=== PATIENT | female | born 2000 | race Caucasian/White ===

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

== ENCOUNTER 2022-01-29 04:59 | Emergency (ER) | payer SELFPAY ==
[2022-01-29 05:05] VITALS: BP 138/88; PULSE 77; RESP 15; TEMP 36.4; O2SAT 100; BMI 29.7
--- NOTE | 2022-01-29 05:26 | ED.GENADULT ---
HPI - General Adult <Anju Watt MD - Last Filed: 02/10/22 18:30> General Chief complaint: Abdominal Pain Stated complaint: ABD. PAIN/VOMITING Time Seen by Provider: 01/29/22 05:17 Source: patient Mode of arrival: Ambulatory History of Present Illness HPI narrative: Otherwise healthy 21-year-old young woman on Depo-Provera for control presents with acute onset right lower quadrant abdominal pain. It awoke her from sleep with severe nausea at 3:30 a.m. this morning she is had a number of episodes of vomiting, right lower quadrant pain, mild right flank pain. No vaginal discharge but she notes that her urine is quite concentrated. She hits general abdominal cramping and did not feel perfect yesterday but still was able to go to work. She describes no fevers, cough, palpitations, headache. She is had no dysuria and no vaginal discharge. She is had no rashes and no lower extremity edema Related Data Previous Rx's Medication Instructions Recorded meloxicam 7.5 mg tablet 7.5 mg PO BID PRN pain #20 tabs 01/29/22 oxycodone 5 mg tablet 5 mg PO Q6H PRN pain #14 tabs 01/29/22 tamsulosin 0.4 mg capsule (Flomax) 0.4 mg PO DAILY #7 caps 01/29/22 Allergies Allergy/AdvReac Type Severity Reaction Status Date / Time No Known Drug Allergies Allergy Verified 01/29/22 05:10 Review of Systems <Anju Watt MD - Last Filed: 02/10/22 18:30> Review of Systems Narrative: Remainder of complete review of systems is otherwise unremarkable except for that included in the HPI. Patient History <Anju Watt MD - Last Filed: 02/10/22 18:30> Medical History Dysmenorrhea Menorrhagia No significant medical problems Reactive airway disease Social History Smoking Status: Never smoker Smoking Status: Never smoker alcohol intake frequency: holidays/special occasions only Substance Use Type: does not use Exam <Anju Watt MD - Last Filed: 02/10/22 18:30> Initial Vital Signs Initial Vital Signs: Vital Signs Temperature 97.6 F 01/29/22 05:05 Pulse Rate 77 01/29/22 05:05 Respiratory Rate 15 01/29/22 05:05 Blood Pressure 138/88 01/29/22 05:05 Pulse Oximetry 100 01/29/22 05:05 Oxygen Delivery Method 01/29/22 05:05 General: Healthy appearing, in mild distress. Able to give a complete and coherent history. Well-nourished well-developed HEENT: Moist mucous membranes, normal sclera with reactive pupils, Neck: No cervical adenopathy supple Respiratory: Lungs are clear to auscultation, no wheezing no rales no rhonchi. Full and symmetrical air movement Cardiac: Regular rate and rhythm no murmurs no bruits Abdomen: Soft, mild tenderness in the right lower quadrant in the right flank without rebound or guarding., good bowel tones, no flank pain Skin: Warm and dry, no rashes Neurologic: Grossly neurologically intact with no obvious asymmetries or abnormalities Extremities: No trauma, well perfused Psych: Cooperative, appropriate insight and affect <Michelle Francisco DO - Last Filed: 01/29/22 18:41> Initial Vital Signs Initial Vital Signs: Vital Signs Temperature 97.6 F 01/29/22 05:05 Pulse Rate 77 01/29/22 05:05 Respiratory Rate 15 01/29/22 05:05 Blood Pressure 138/88 01/29/22 05:05 Pulse Oximetry 100 01/29/22 05:05 Oxygen Delivery Method 01/29/22 05:05 Course <Anju Watt MD - Last Filed: 02/10/22 18:30> Orders Ordered: Discontinued Medications Hydromorphone HCl (Hydromorphone 0.5 Mg Inj) 0.5 mg IV Q15MIN PRN PRN Reason: Pain, Last Admin: 01/29/22 05:44 Dose: 0.5 mg Documented By: URSULA Sodium Chloride (Normal Saline 0.9%) 1,000 mls @ 1,000 mls/hr IV BOLUS ONE Stop: 01/29/22 06:30 Last Infusion: 01/29/22 08:07 Dose: 0 mls/hr Documented By: Admin: 01/29/22 05:44 Dose: 1,000 mls/hr Documented By: URSULA Ceftriaxone Sodium 2,000 mg/ (Sodium Chloride) 100 mls @ 200 mls/hr IV NOW ONE Stop: 01/29/22 07:53 Last Infusion: 01/29/22 09:31 Dose: 0 mls/hr Documented By: Admin: 01/29/22 08:22 Dose: 200 mls/hr Documented By: PHOENIX Ketorolac Tromethamine (Ketorolac 30 Mg/Ml Vial) 15 mg IV NOW ONE Stop: 01/29/22 08:10 Last Admin: 01/29/22 08:18 Dose: 15 mg Documented By: PHOENIX Ondansetron HCl (Ondansetron 4 Mg/2 Ml Inj) 4 mg IV NOW ONE Stop: 01/29/22 05:13 Last Admin: 01/29/22 05:44 Dose: 4 mg Documented By: URSULA Ondansetron HCl (Ondansetron 4 Mg/2 Ml Inj) 4 mg IV NOW ONE Stop: 01/29/22 05:32 Last Admin: 01/29/22 08:06 Dose: Not Given Documented By: PHOENIX Vital Signs Vital signs: Vital Signs - 8 hr 01/29/22 05:05 01/29/22 09:29 Temperature 97.6 F Pulse Rate 77 84 Respiratory Rate 15 18 Blood Pressure 138/88 111/72 Pulse Oximetry 100 96 Oxygen Delivery Method Room Air Room Air <Michelle Francisco DO - Last Filed: 01/29/22 18:41> Orders Ordered: Discontinued Medications Hydromorphone HCl (Hydromorphone 0.5 Mg Inj) 0.5 mg IV Q15MIN PRN PRN Reason: Pain, Last Admin: 01/29/22 05:44 Dose: 0.5 mg Documented By: URSULA Sodium Chloride (Normal Saline 0.9%) 1,000 mls @ 1,000 mls/hr IV BOLUS ONE Stop: 01/29/22 06:30 Last Infusion: 01/29/22 08:07 Dose: 0 mls/hr Documented By: Admin: 01/29/22 05:44 Dose: 1,000 mls/hr Documented By: URSULA Ceftriaxone Sodium 2,000 mg/ (Sodium Chloride) 100 mls @ 200 mls/hr IV NOW ONE Stop: 01/29/22 07:53 Last Infusion: 01/29/22 09:31 Dose: 0 mls/hr Documented By: Admin: 01/29/22 08:22 Dose: 200 mls/hr Documented By: PHOENIX Ketorolac Tromethamine (Ketorolac 30 Mg/Ml Vial) 15 mg IV NOW ONE Stop: 01/29/22 08:10 Last Admin: 01/29/22 08:18 Dose: 15 mg Documented By: PHOENIX Ondansetron HCl (Ondansetron 4 Mg/2 Ml Inj) 4 mg IV NOW ONE Stop: 01/29/22 05:13 Last Admin: 01/29/22 05:44 Dose: 4 mg Documented By: URSULA Ondansetron HCl (Ondansetron 4 Mg/2 Ml Inj) 4 mg IV NOW ONE Stop: 01/29/22 05:32 Last Admin: 01/29/22 08:06 Dose: Not Given Documented By: PHOENIX Consultations Consultation #1: Dr. Han, urology paged [phone]. Discussed patient's findings, white count of 12, normal renal function moderate hydro with a 4 mm stone, nitrates, white cells with 1-5 squamous epithelials, afebrile without any signs of sepsis. Plan for Levaquin, pain management Flomax patient is to reach out on Monday. With strict return precautions he feels comfortable with this plan agrees with current medications. Time: 09:39 Vital Signs Vital signs: Vital Signs - 8 hr 01/29/22 05:05 01/29/22 09:29 Temperature 97.6 F Pulse Rate 77 84 Respiratory Rate 15 18 Blood Pressure 138/88 111/72 Pulse Oximetry 100 96 Oxygen Delivery Method Room Air Room Air Medical Decision Making <Anju Watt MD - Last Filed: 02/10/22 18:30> Lab Data Result diagrams: 01/29/22 05:20 01/29/22 05:20 Labs: Lab Results 01/29/22 01/29/22 01/29/22 Range/Units 05:20 05:20 05:22 WBC 12.6 H (4.5-11.0) X10^3/uL RBC 5.16 (4.0-5.2) X10^6/uL Hgb 14.2 (12.0-16.0) g/dL Hct 42.5 (36-46) % MCV 82.5 (80-100) fL MCH 27.6 (26-34) PG MCHC 33.5 (30-36) % RDW 13.3 (11.6-14.8) % Plt Count 283 (150-400) X10^3/uL Neut % (Auto) 74.9 (50-75) % Lymph % (Auto) 19.5 L (25-40) % [place] % (Auto) 4.3 (3-14) % Eos % (Auto) 1.0 L (2-4) % Baso % (Auto) 0.3 (0-2) % Neut # (Auto) 9400 H (2686-0113) /uL Lymph # (Auto) 2500 (7017-1236) /uL [place] # (Auto) 500 (0-900) /uL Eos # (Auto) 100 (0-450) /uL Baso # (Auto) 0 (0-100) /uL Sodium 142 (137-145) mmol/L Potassium 3.7 (3.4-5.1) mmol/L Chloride 104 (98-107) mmol/L Carbon Dioxide 22 (22-32) mmol/L BUN 14 (7-17) mg/dL Creatinine 0.89 (0.52-1.04) mg/dL Estimated GFR > 60 (>60) mL/min BUN/Creatinine Ratio 15.7 (6-22) Glucose 123 H (70-100) mg/dL Calcium 10.3 H (8.4-10.2) mg/dL Total Bilirubin 0.4 (0.2-1.3) mg/dL AST 23 (14-36) IU/L ALT 23 (<35) IU/L Alkaline Phosphatase 82 (38-126) U/L Total Protein 8.8 H (6.3-8.2) g/dL Albumin 4.7 (3.5-5.0) g/dL Globulin 4.1 (1.7-4.1) g/dL Albumin/Globulin Ratio 1.1 (1.0-2.8) Lipase 42 (23-300) U/L Ur Bilirubin Confirm Negative (Negative) Urine RBC (0-5/HPF) Urine WBC (0-5/HPF) Ur Squamous Epith Cells (0-5/HPF) Calcium Oxalate Crystal Amorphous Sediment Urine Bacteria (None) 01/29/22 Range/Units 05:22 WBC (4.5-11.0) X10^3/uL RBC (4.0-5.2) X10^6/uL Hgb (12.0-16.0) g/dL Hct (36-46) % MCV (80-100) fL MCH (26-34) PG MCHC (30-36) % RDW (11.6-14.8) % Plt Count (150-400) X10^3/uL Neut % (Auto) (50-75) % Lymph % (Auto) (25-40) % [place] % (Auto) (3-14) % Eos % (Auto) (2-4) % Baso % (Auto) (0-2) % Neut # (Auto) (1651-5042) /uL Lymph # (Auto) (9052-1798) /uL [place] # (Auto) (0-900) /uL Eos # (Auto) (0-450) /uL Baso # (Auto) (0-100) /uL Sodium (137-145) mmol/L Potassium (3.4-5.1) mmol/L Chloride (98-107) mmol/L Carbon Dioxide (22-32) mmol/L BUN (7-17) mg/dL Creatinine (0.52-1.04) mg/dL Estimated GFR (>60) mL/min BUN/Creatinine Ratio (6-22) Glucose (70-100) mg/dL Calcium (8.4-10.2) mg/dL Total Bilirubin (0.2-1.3) mg/dL AST (14-36) IU/L ALT (<35) IU/L Alkaline Phosphatase (38-126) U/L Total Protein (6.3-8.2) g/dL Albumin (3.5-5.0) g/dL Globulin (1.7-4.1) g/dL Albumin/Globulin Ratio (1.0-2.8) Lipase (23-300) U/L Ur Bilirubin Confirm (Negative) Urine RBC 30-100/hpf H (0-5/HPF) Urine WBC 1-5/hpf (0-5/HPF) Ur Squamous Epith Cells 1-5 /hpf (0-5/HPF) Calcium Oxalate Crystal Occasional H Amorphous Sediment 1+ Urine Bacteria Many (>30) H (None) Point of Care Testing Test Results Negative Urine Dip Bedside Urine Glucose Negative Bedside Urine Bilirubin + 1 Bedside Urine Ketone +/- 5 Urine Specific [place] 1.030 Bedside Urine Occult Blood +++ Bedside Urine pH 5.0 Bedside Urine Protein +++ 300 Bedside Urine Urobilinogen +/- 1mg Bedside Urine Nitrite + Positive Point of care testing: Point of Care Testing Test Results Negative Urine Dip Bedside Urine Glucose Negative Bedside Urine Bilirubin + 1 Bedside Urine Ketone +/- 5 Urine Specific [place] 1.030 Bedside Urine Occult Blood +++ Bedside Urine pH 5.0 Bedside Urine Protein +++ 300 Bedside Urine Urobilinogen +/- 1mg Bedside Urine Nitrite + Positive <Michelle Francisco, DO - Last Filed: 01/29/22 18:41> Lab Data Labs: Lab Results 01/29/22 01/29/22 01/29/22 Range/Units 05:20 05:20 05:22 WBC 12.6 H (4.5-11.0) X10^3/uL RBC 5.16 (4.0-5.2) X10^6/uL Hgb 14.2 (12.0-16.0) g/dL Hct 42.5 (36-46) % MCV 82.5 (80-100) fL MCH 27.6 (26-34) PG MCHC 33.5 (30-36) % RDW 13.3 (11.6-14.8) % Plt Count 283 (150-400) X10^3/uL Neut % (Auto) 74.9 (50-75) % Lymph % (Auto) 19.5 L (25-40) % [place] % (Auto) 4.3 (3-14) % Eos % (Auto) 1.0 L (2-4) % Baso % (Auto) 0.3 (0-2) % Neut # (Auto) 9400 H (4940-0636) /uL Lymph # (Auto) 2500 (3215-1872) /uL [place] # (Auto) 500 (0-900) /uL Eos # (Auto) 100 (0-450) /uL Baso # (Auto) 0 (0-100) /uL Sodium 142 (137-145) mmol/L Potassium 3.7 (3.4-5.1) mmol/L Chloride 104 (98-107) mmol/L Carbon Dioxide 22 (22-32) mmol/L BUN 14 (7-17) mg/dL Creatinine 0.89 (0.52-1.04) mg/dL Estimated GFR > 60 (>60) mL/min BUN/Creatinine Ratio 15.7 (6-22) Glucose 123 H (70-100) mg/dL Calcium 10.3 H (8.4-10.2) mg/dL Total Bilirubin 0.4 (0.2-1.3) mg/dL AST 23 (14-36) IU/L ALT 23 (<35) IU/L Alkaline Phosphatase 82 (38-126) U/L Total Protein 8.8 H (6.3-8.2) g/dL Albumin 4.7 (3.5-5.0) g/dL Globulin 4.1 (1.7-4.1) g/dL Albumin/Globulin Ratio 1.1 (1.0-2.8) Lipase 42 (23-300) U/L Ur Bilirubin Confirm Negative (Negative) Urine RBC (0-5/HPF) Urine WBC (0-5/HPF) Ur Squamous Epith Cells (0-5/HPF) Calcium Oxalate Crystal Amorphous Sediment Urine Bacteria (None) 01/29/22 Range/Units 05:22 WBC (4.5-11.0) X10^3/uL RBC (4.0-5.2) X10^6/uL Hgb (12.0-16.0) g/dL Hct (36-46) % MCV (80-100) fL MCH (26-34) PG MCHC (30-36) % RDW (11.6-14.8) % Plt Count (150-400) X10^3/uL Neut % (Auto) (50-75) % Lymph % (Auto) (25-40) % [place] % (Auto) (3-14) % Eos % (Auto) (2-4) % Baso % (Auto) (0-2) % Neut # (Auto) (2127-9654) /uL Lymph # (Auto) (8960-5089) /uL [place] # (Auto) (0-900) /uL Eos # (Auto) (0-450) /uL Baso # (Auto) (0-100) /uL Sodium (137-145) mmol/L Potassium (3.4-5.1) mmol/L Chloride (98-107) mmol/L Carbon Dioxide (22-32) mmol/L BUN (7-17) mg/dL Creatinine (0.52-1.04) mg/dL Estimated GFR (>60) mL/min BUN/Creatinine Ratio (6-22) Glucose (70-100) mg/dL Calcium (8.4-10.2) mg/dL Total Bilirubin (0.2-1.3) mg/dL AST (14-36) IU/L ALT (<35) IU/L Alkaline Phosphatase (38-126) U/L Total Protein (6.3-8.2) g/dL Albumin (3.5-5.0) g/dL Globulin (1.7-4.1) g/dL Albumin/Globulin Ratio (1.0-2.8) Lipase (23-300) U/L Ur Bilirubin Confirm (Negative) Urine RBC 30-100/hpf H (0-5/HPF) Urine WBC 1-5/hpf (0-5/HPF) Ur Squamous Epith Cells 1-5 /hpf (0-5/HPF) Calcium Oxalate Crystal Occasional H Amorphous Sediment 1+ Urine Bacteria Many (>30) H (None) Point of Care Testing Test Results Negative Urine Dip Bedside Urine Glucose Negative Bedside Urine Bilirubin + 1 Bedside Urine Ketone +/- 5 Urine Specific [place] 1.030 Bedside Urine Occult Blood +++ Bedside Urine pH 5.0 Bedside Urine Protein +++ 300 Bedside Urine Urobilinogen +/- 1mg Bedside Urine Nitrite + Positive Point of care testing: Point of Care Testing Test Results Negative Urine Dip Bedside Urine Glucose Negative Bedside Urine Bilirubin + 1 Bedside Urine Ketone +/- 5 Urine Specific [place] 1.030 Bedside Urine Occult Blood +++ Bedside Urine pH 5.0 Bedside Urine Protein +++ 300 Bedside Urine Urobilinogen +/- 1mg Bedside Urine Nitrite + Positive Imaging Data CT scan - abdomen/pelvis: Radiologist's Impression: Charlene Calixto??21??F??2000 ? Allergy/Adv: No Known Drug Allergies Close Abdomen/Pelvis CT (Signed) Kash Haji - 01/29/22 Abdomen Ultrasound (Signed) Kash Haji - 01/29/22 DI Result CC 11/11/20 Wrist X-Ray (Signed) Luisito Moses - 04/03/20 Hand X-Ray (Signed) Call,Thanh - 03/11/19 Pelvis Ultrasound (Signed) Call,Thanh - 12/20/18 Forearm X-Ray (Signed) SungLarry davisdevon - 12/24/17 Wrist X-Ray (Addendum) Larry Sungdevon - 12/24/17 Ankle X-Ray (Signed) Adán Braun - 10/06/17 Ankle X-Ray (Signed) Marija Malik - 08/25/17 [place] [address] CT Scan Report Signed Patient: Charlene Calixto MR#: [id number] : 2000 Acct:[id number] Age/Sex: 21 / F Date of Service: 01/29/22 Loc: ED Accession Number: [id number] ?? Procedure: CT abdomen pelvis w con Ordering Provider: Michelle Francisco D.O. PROCEDURE:? CT ABDOMEN PELVIS W CON ? INDICATIONS:? RLQ pain, appy? ? TECHNIQUE:? After the administration of intravenous contrast, axial sections acquired from the lung bases to the pubic symphysis.? Coronal and sagittal reformats were performed.? For radiation dose reduction, the following was used:? automated exposure control, adjustment of mA and/or kV according to patient size.? ? COMPARISON:? None. ? FINDINGS: ? Lower thorax: The lung bases are clear.? Heart size normal.? No hiatal hernia. ? Liver:? Normal in size and attenuation. No contour deformity present. ? Biliary system:? No calcified cholelithiasis or pericholecystic inflammation.? No intra or extrahepatic bile duct dilatation. ? Pancreas:? Unremarkable without mass or inflammation evident. ? Spleen:? Normal in size and density. ? Adrenals:? Normal morphology and density. ? Reproductive system:? Incidental prominent septate uterus ? Urinary system:? 4 mm calculus in the proximal right ureter results in moderate right hydronephrosis and hydroureter.? Slightly delayed enhancement noted in the right kidney.? There is a 8 mm simple cyst in the left upper pole renal cortex.? No left hydronephrosis. ? Gastrointestinal system:? The bowel is unremarkable without evidence of bowel obstruction or inflammation. The stomach appears unremarkable. ? Appendix:? Normal appendix identified.? No evidence of appendicitis. ? Peritoneal spaces:? No mesenteric or retroperitoneal adenopathy.? No free air.? No free fluid.? ? Vasculature:? The IVC, aorta and iliac vasculature are unremarkable. ? Abdominal wall:? Abdominal wall intact without evidence of ventral or inguinal hernias. ? Musculoskeletal:? Normal bone mineralization.? No acute fractures.? ? IMPRESSION: ? 1. Small 4 mm calculus in proximal right ureter results in moderate hydronephrosis ? 2. Incidental septate uterus ? ? ? Approved by: Kash Haji M.D. on 01/29/2022 at 7:26? MDM Narrative Medical decision making narrative: 01/29/22 Mank: This is a 21-year-old female signed out to myself with acute onset of severe right lower abdominal pain with vomiting. Patient has a white count 12, normal renal function, electrolytes and LFTs. Point of care urine shows nitrates, blood and oxalate crystals, patient has a negative test. Abdominal ultrasound was ordered by the night provider does not clearly show appendix and CT abdomen pelvis was obtained to evaluate for appendicitis versus kidney stone versus pyelonephritis and patient appears to have right 4 mm kidney stone. Patient does have nitrite positive urine does not appear septic, she has given a dose of IV antibiotic, pain medications and fluids on evaluation patient is feeling much improved. She does not show any signs of sepsis currently. Plan for Flomax, antibiotics, pain management, strict return precautions we did discuss that she is risk become obstructive and developed sepsis. Urology was consulted spoke with Dr. Han agree with plan for strict return precautions and above. Discharge Plan Departure Patient Disposition: Home Clinical Impression: Kidney stone on right side, UTI (urinary tract infection) Activity Restrictions/Additional Instructions: Please follow-up with urology if your symptoms are persisting but controlled at home. You have a kidney stone on the right side as well as an infection in your bladder. This can sometimes cause obstruction and make people very sick if you are worsening please return to the ER Take Flomax once daily until gone. Take antibiotics until completed. You may take meloxicam 1 tablet every 12 hours as needed for pain. Tylenol up to a 1000 mg every 6 hours as needed for pain. If inadequate for pain control you may take 1-2 tablets of oxycodone. This medication can make you sleepy do not drive, perform hazardous activities or make any major decisions while taking it. This medication will make you constipated please take a stool softener once to twice daily until stools are soft and regular. Prescription sent to [facility] in [place] Please return for fevers, rapidly worsening pain that is not controlled at home such abdominal, back or flank pain, persistent vomiting, inability urinate, black or bloody stools or other new or concerning changes. Prescriptions: New tamsulosin [Flomax] 0.4 mg capsule 0.4 mg PO DAILY Qty: 7 0RF meloxicam 7.5 mg tablet 7.5 mg PO BID PRN (Reason: pain) Qty: 20 0RF oxycodone 5 mg tablet 5 mg PO Q6H PRN (Reason: pain) Qty: 14 0RF Referrals: Vicenta Beverly MD [Primary Care Provider] - Michael Han MD [Physician] - Visit Report Forms: Patient Portal/API
[2022-01-29 05:34] LABS: Add Manual Diff / Slide Review NO; Basophils Absolute Auto 0 /uL (0-100); Basophils Percent Auto 0.3 % (0-2); Eosinophils Absolute Auto 100 /uL (0-450); Hematocrit 42.5 % (36-46); Hemoglobin 14.2 g/dL (12.0-16.0); Lymphocytes Absolute Auto 2500 /uL (1100-4500); Lymphocytes Percent Auto 19.5 % (25-40); Mean Corpuscular HGB Conc 33.5 % (30-36); Mean Corpuscular Hemoglobin 27.6 PG (26-34); Mean Corpuscular Volume 82.5 fL (80-100); Monocytes Absolute Auto 500 /uL (0-900); Monocytes Percent Auto 4.3 % (3-14); Neutrophils Absolute Auto 9400 /uL (1500-7000); Neutrophils Percent Auto 74.9 % (50-75); Platelet Count 283 X10^3/uL (150-400); Red Blood Cell Count 5.16 X10^6/uL (4.0-5.2); Red Cell Distribution Width 13.3 % (11.6-14.8); White Blood Cell Count 12.6 X10^3/uL (4.5-11.0)
[2022-01-29 05:40] LABS: Alanine Aminotransferase 23 IU/L (<35); Albumin 4.7 g/dL (3.5-5.0); Albumin Globulin Ratio 1.1 (1.0-2.8); Alkaline Phosphatase 82 U/L (38-126); Aspartate Aminotransferase 23 IU/L (14-36); BUN Creatinine Ratio 15.7 (6-22); Bilirubin Total 0.4 mg/dL (0.2-1.3); Blood Urea Nitrogen 14 mg/dL (7-17); Calcium 10.3 mg/dL (8.4-10.2); Carbon Dioxide 22 mmol/L (22-32); Chloride 104 mmol/L (98-107); Estimated Glomerular Filt Rate > 60 mL/min (>60); Globulin 4.1 g/dL (1.7-4.1); Glucose 123 mg/dL (70-100); HEMOLYSIS < 15 (0-50); Lipase 42 U/L (23-300); Potassium 3.7 mmol/L (3.4-5.1); Sodium 142 mmol/L (137-145); Total Protein 8.8 g/dL (6.3-8.2)
[2022-01-29] MEDS: SODIUM CHLORIDE 0.9% 1,000 ML 1000 ML IV (05:44)
[2022-01-29] MEDS: ONDANSETRON 4 MG/2 ML INJ IV (05:44)
[2022-01-29] MEDS: HYDROMORPHONE 0.5 MG INJ IV (05:44)
--- NOTE | 2022-01-29 06:18 | DI.US.S_ITS ---
PROCEDURE: US ABDOMEN LIMITED INDICATIONS: RLQ PAIN TECHNIQUE: Real-time scanning was performed of the abdominal and retroperitoneal organs, with image documentation. COMPARISON: None. FINDINGS: Graded compression scanning the right lower quadrant fails to identify the appendix. Normal muscular and fat planes noted. No free fluid, adenopathy or abscess present. IMPRESSION: 1. Nonvisualized appendix. Appendicitis not excluded Approved by: Kash Haji M.D. on 01/29/2022 at 7:11
--- NOTE | 2022-01-29 07:14 | DI.CT.S_ITS ---
PROCEDURE: CT ABDOMEN PELVIS W CON INDICATIONS: RLQ pain, appy? TECHNIQUE: After the administration of intravenous contrast, axial sections acquired from the lung bases to the pubic symphysis. Coronal and sagittal reformats were performed. For radiation dose reduction, the following was used: automated exposure control, adjustment of mA and/or kV according to patient size. COMPARISON: None. FINDINGS: Lower thorax: The lung bases are clear. Heart size normal. No hiatal hernia. Liver: Normal in size and attenuation. No contour deformity present. Biliary system: No calcified cholelithiasis or pericholecystic inflammation. No intra or extrahepatic bile duct dilatation. Pancreas: Unremarkable without mass or inflammation evident. Spleen: Normal in size and density. Adrenals: Normal morphology and density. Reproductive system: Incidental prominent septate uterus Urinary system: 4 mm calculus in the proximal right ureter results in moderate right hydronephrosis and hydroureter. Slightly delayed enhancement noted in the right kidney. There is a 8 mm simple cyst in the left upper pole renal cortex. No left hydronephrosis. Gastrointestinal system: The bowel is unremarkable without evidence of bowel obstruction or inflammation. The stomach appears unremarkable. Appendix: Normal appendix identified. No evidence of appendicitis. Peritoneal spaces: No mesenteric or retroperitoneal adenopathy. No free air. No free fluid. Vasculature: The IVC, aorta and iliac vasculature are unremarkable. Abdominal wall: Abdominal wall intact without evidence of ventral or inguinal hernias. Musculoskeletal: Normal bone mineralization. No acute fractures. IMPRESSION: 1. Small 4 mm calculus in proximal right ureter results in moderate hydronephrosis 2. Incidental septate uterus Approved by: Kash Haji M.D. on 01/29/2022 at 7:26
[2022-01-29 07:22] LABS: WBC Urine 1-5/HPF (0-5/HPF)
[2022-01-29 07:23] LABS: Amorphous Sediment Urine 1+; Bacteria Urine Many (>30); Calcium Oxalate Crystals Urine Occasional; RBC Urine 30-100/HPF (0-5/HPF); Squamous Epithelial Cell Urine 1-5 /HPF (0-5/HPF)
[2022-01-29 07:24] LABS: Ictotest Urine Negative (Negative)
[2022-01-29] MEDS: KETOROLAC 30 MG/ML VIAL 15 MG IV (08:18)
[2022-01-29] MEDS: cefTRIAXone 2,000 MG in SODIUM CHLORIDE 0.9% 100 ML 200 MG IV (08:22)
[2022-01-29 09:29] VITALS: BP 111/72; PULSE 84; RESP 18; O2SAT 96
== END 2022-01-29 09:30 | disposition home or self-care (01) ==
PROVIDERS: Emergency Medicine; Emergency Provider Emergency Medicine; PCP Family Medicine
DX: N20.0 Calculus of kidney (principal); N39.0 Urinary tract infection, site not specified; R11.2 Nausea with vomiting, unspecified
CPT/HCPCS: 36415; 74177; 76705; 80053; 81003; 81015; 81025; 83690; 85025; 87086; 96361; 96365; 96375; 99284; J0696; J1170; J1885; J2405; Q9967

== ENCOUNTER → 2022-03-22 15:04 | Outpatient (CLI) | payer OTHER, SELFPAY ==
[2022-03-22 16:00] LABS: Influenza A - CEPHEID Flu A NEGATIVE (NEGATIVE); Influenza B - CEPHEID Flu B NEGATIVE (NEGATIVE); Respiratory Syncytial Virus Negative (Negative)
[2022-03-22 16:01] LABS: COVID-19 CEPHEID 4-PLEX PCR Negative (Negative)
== END ==
PROVIDERS: PCP Family Medicine; Visit Provider Registered Nurse
DX: R05.1 Acute cough (principal); Z20.822 Contact with and (suspected) exposure to COVID-19
CPT/HCPCS: 0241U

== ENCOUNTER 2022-07-25 17:11 | Emergency (ER) | payer OTHER, SELFPAY ==
[2022-07-25 17:14] VITALS: BP 135/78; PULSE 89; RESP 16; TEMP 36.9; O2SAT 98; BMI 30.9
[2022-07-25 18:01] LABS: Add Manual Diff / Slide Review NO; Basophils Absolute Auto 0 /uL (0-100); Basophils Percent Auto 0.4 % (0-2); Eosinophils Absolute Auto 100 /uL (0-450); Hematocrit 38.2 % (36-46); Hemoglobin 13.1 g/dL (12.0-16.0); Lymphocytes Absolute Auto 2400 /uL (1100-4500); Lymphocytes Percent Auto 33.4 % (25-40); Mean Corpuscular HGB Conc 34.3 % (30-36); Mean Corpuscular Hemoglobin 27.6 PG (26-34); Mean Corpuscular Volume 80.5 fL (80-100); Monocytes Absolute Auto 400 /uL (0-900); Monocytes Percent Auto 5.9 % (3-14); Neutrophils Absolute Auto 4300 /uL (1500-7000); Neutrophils Percent Auto 59.3 % (50-75); Platelet Count 239 X10^3/uL (150-400); Red Blood Cell Count 4.74 X10^6/uL (4.0-5.2); Red Cell Distribution Width 13.4 % (11.6-14.8); White Blood Cell Count 7.3 X10^3/uL (4.5-11.0)
[2022-07-25 18:03] LABS: BUN Creatinine Ratio 21.7 (6-22); Blood Urea Nitrogen 13 mg/dL (7-17); Calcium 10.1 mg/dL (8.4-10.2); Carbon Dioxide 25 mmol/L (22-32); Chloride 104 mmol/L (98-107); Estimated Glomerular Filt Rate > 60 mL/min (>60); Glucose 91 mg/dL (70-100); HEMOLYSIS < 15 (0-50); Potassium 3.8 mmol/L (3.4-5.1); Sodium 136 mmol/L (137-145)
[2022-07-25 18:20] LABS: Prolactin 11.9 ng/mL (3.0-18.6)
--- NOTE | 2022-07-25 21:47 | ED.GENADULT ---
HPI - General Adult General Chief complaint: Seizure Stated complaint: seizure Time Seen by Provider: 07/25/22 21:40 Source: patient Mode of arrival: Ambulatory History of Present Illness HPI narrative: 22-year-old female nonsmoker with history of kidney stones and seizures presents with her significant other and a chief complaint of a witnessed seizure earlier today. She is been having seizures for the past few months and states she is had 6 in total. She had what she describes as a relatively typical aura and which she has some fuzzy vision and feels like her body is twitching and describes it like TV static. She sat down in a chair and did not injure herself. Witnesses state that she had what sounds like a generalized tonic-clonic seizure that lasted about 3 minutes. She did not bite her tongue and did not lose control of her bladder. She is had no trauma or injury. She denies any fever or chills. She does not smoke or drink. She denies any change in medications or diet. She denies any family history of seizures. She had been seen and evaluated a few days ago at an outside facility after another seizure and had a large workup including CT scan which was unremarkable. She has an appointment with her primary care provider coming up in a few days and plans to gain referral to Neurology. Related Data Previous Rx's Medication Instructions Recorded meloxicam 7.5 mg tablet 7.5 mg PO BID PRN pain #20 tabs 01/29/22 oxycodone 5 mg tablet 5 mg PO Q6H PRN pain #14 tabs 01/29/22 tamsulosin 0.4 mg capsule (Flomax) 0.4 mg PO DAILY #7 caps 01/29/22 levetiracetam 750 mg tablet 750 mg PO BID #60 tabs 07/25/22 (Keppra) Allergies Allergy/AdvReac Type Severity Reaction Status Date / Time No Known Drug Allergies Allergy Verified 03/22/22 15:06 Review of Systems Review of Systems Narrative: GENERAL: Denies chills, fatigue, malaise, fever, sweats. HEENT: Denies sinus pain, ear pain, sore throat, difficulty swallowing, dizziness. RESPIRATORY: Denies dyspnea, cough, wheezing, hemoptysis, sputum. CARDIOVASCULAR: Denies chest pain, palpitations, orthopnea, edema, GASTROINTESTINAL: Denies nausea, vomiting, abdominal pain, diarrhea, constipation, melena. : Denies dysuria, frequency, incontinence, hematuria, urinary retention. MUSCULOSKELETAL: denies weakness, joint pain, or bony pain SKIN: Denies rash, skin lesions, or other NEUROLOGIC: See HPI PSYCHIATRIC: No concerning psychosocial issues. 12 point review of systems is negative except for those stated above Patient History Medical History Dysmenorrhea Menorrhagia No significant medical problems Reactive airway disease Social History Smoking Status: Never smoker Smoking Status: Never smoker alcohol intake frequency: holidays/special occasions only Substance Use Type: does not use Exam Narrative Exam Narrative: GENERAL: [22] year old patient appears stated age. Well-developed patient, in mild distress. HEAD: Atraumatic. Normocephalic. EYES: Pupils equal round and reactive. Extraocular motions intact. No scleral icterus. No injection or drainage. ENT: Nose without bleeding, purulent drainage. Throat without erythema, tonsillar hypertrophy or exudate. Airway patent. NECK: Trachea midline. Non tender CARDIOVASCULAR: Regular rate and rhythm without murmurs, gallops, or rubs. RESPIRATORY: Clear to auscultation. Breath sounds equal bilaterally. No wheezes, rales, or rhonchi. GASTROINTESTINAL: Abdomen soft, non-tender, nondistended. EXTREMITIES: No edema or joint tenderness. BACK: Nontender without deformity or crepitance. No flank tenderness. NEURO: AOx3. SKIN: No rash or erythema of visible areas NIH Stroke Scale 1a. LOC: Patient is alert and keenly responsive (0) 1b. LOC Questions: Patient answers both LOC questions accurately (0) 1c. LOC Commands: Patient performs both tasks correctly (0) 2. Best Gaze: Normal (0) 3. Visual: No visual loss (0) 4. Facial palsy: Normal symmetrical movements (0) 5. Motor arm: No drift (0) 6. Motor leg: No drift (0) 7. Limb ataxia: Absent (0) 8. Sensory: Normal (0) 9. Best language: No aphasia; normal (0) 10. Dysarthria: Normal (0) 11. Extinction and inattention: No abnormality (0) NIHSS: 0 Initial Vital Signs Initial Vital Signs: Vital Signs Temperature 98.4 F 07/25/22 17:14 Pulse Rate 89 07/25/22 17:14 Respiratory Rate 16 07/25/22 17:14 Blood Pressure 135/78 07/25/22 17:14 Pulse Oximetry 98 07/25/22 17:14 Oxygen Delivery Method Room Air 07/25/22 17:14 Course Orders Ordered: ED Orders 07/25/22 17:45 Basic Metabolic Panel Stat Complete Blood Count AUTO DIFF Stat Prolactin Stat 07/25/22 22:00 CT head/brain wo con Stat Discontinued Medications Levetiracetam 1,000 mg/ Sodium (Chloride) 110 mls @ 440 mls/hr IV NOW ONE Stop: 07/25/22 22:57 Last Admin: 07/25/22 23:33 Dose: 440 mls/hr Documented By: SONIA Consultations Consultation #1: discussed with Dr. Skinner ( Neurology). After lengthy discussion regarding the patient's visit today including history and physical as well as the events of the past few months he recommends initiating Keppra 1000 mg and starting patient on 750 p.o. b.i.d.. We discussed that patient will need Neurology referral and I relayed that patient has an upcoming appointment with her PCP to help make this happen. Vital Signs Vital signs: Vital Signs - 8 hr 07/25/22 17:14 07/25/22 22:54 07/25/22 22:55 Temperature 98.4 F Pulse Rate 89 Respiratory Rate 16 Blood Pressure 135/78 127/64 Blood Pressure [Left Arm] Pulse Oximetry 98 93 Oxygen Delivery Method Room Air 07/25/22 22:55 07/25/22 23:00 07/25/22 23:00 Temperature Pulse Rate 65 64 63 Respiratory Rate Blood Pressure Blood Pressure [Left Arm] 127/64 Pulse Oximetry 98 92 Oxygen Delivery Method Room Air 07/25/22 23:30 Temperature Pulse Rate 76 Respiratory Rate Blood Pressure Blood Pressure [Left Arm] Pulse Oximetry Oxygen Delivery Method Medical Decision Making Lab Data 07/25/22 17:45 07/25/22 17:45 Labs: Lab Results 07/25/22 07/25/22 Range/Units 17:45 17:45 WBC 7.3 (4.5-11.0) X10^3/uL RBC 4.74 (4.0-5.2) X10^6/uL Hgb 13.1 (12.0-16.0) g/dL Hct 38.2 (36-46) % MCV 80.5 (80-100) fL MCH 27.6 (26-34) PG MCHC 34.3 (30-36) % RDW 13.4 (11.6-14.8) % Plt Count 239 (150-400) X10^3/uL Neut % (Auto) 59.3 (50-75) % Lymph % (Auto) 33.4 (25-40) % Wilkinson % (Auto) 5.9 (3-14) % Eos % (Auto) 1.0 L (2-4) % Baso % (Auto) 0.4 (0-2) % Neut # (Auto) 4300 (4681-1741) /uL Lymph # (Auto) 2400 (0071-0963) /uL Wilkinson # (Auto) 400 (0-900) /uL Eos # (Auto) 100 (0-450) /uL Baso # (Auto) 0 (0-100) /uL Sodium 136 L (137-145) mmol/L Potassium 3.8 (3.4-5.1) mmol/L Chloride 104 (98-107) mmol/L Carbon Dioxide 25 (22-32) mmol/L BUN 13 (7-17) mg/dL Creatinine 0.60 (0.52-1.04) mg/dL Estimated GFR > 60 (>60) mL/min BUN/Creatinine Ratio 21.7 (6-22) Glucose 91 (70-100) mg/dL Calcium 10.1 (8.4-10.2) mg/dL Prolactin 11.9 (3.0-18.6) ng/mL Point of Care Testing Test Results Negative Urine Dip Bedside Urine Glucose Negative Bedside Urine Bilirubin - Negative Bedside Urine Ketone - Negative Urine Specific Haines 1.015 Bedside Urine Occult Blood - Negative Bedside Urine pH 6.0 Bedside Urine Protein - Negative Bedside Urine Urobilinogen - Negative Bedside Urine Nitrite - Negative Bedside Urine Leukocytes - Negative Esterase Point of care testing: Point of Care Testing Test Results Negative Urine Dip Bedside Urine Glucose Negative Bedside Urine Bilirubin - Negative Bedside Urine Ketone - Negative Urine Specific Haines 1.015 Bedside Urine Occult Blood - Negative Bedside Urine pH 6.0 Bedside Urine Protein - Negative Bedside Urine Urobilinogen - Negative Bedside Urine Nitrite - Negative Bedside Urine Leukocytes - Negative Esterase [facility] decision making narrative: CC: 22-year-old female with seizure-like activity Complicating co-morbidities: Prior seizures Data collected from: Patient Medical records reviewed: Prior notes reviewed in our EMR Differential considered, but not limited to: Primary epileptic seizure versus secondary causes such as electrolyte abnormality, infectious versus other Exam documented above, pertinent findings include: Alert and oriented, NIH stroke scale 0, heart rate regular, lungs clear Lab Test results independently reviewed as above. Pertinent findings: No significant abnormalities requiring specific or immediate intervention Independently reviewed EKG as above Imaging studies independently reviewed: CT of head deferred given negative CT 2 days ago at outside facility Scores Used: NIHSS Consultations: Dr. Skinner ( Neuro) see details above Treatments: Keppra 1000mg Re-evaluations: patient at baseline for duration Discussion: Patient with 6th reported seizure in 2-3 months, no evidence of secondary cause. Witnessed seizure lasting approximately 3 minutes with return to baseline within 5-10 minutes. Patient had recent head CT, verified with [place], no acute process. Discussed with neurology and recommend starting Keppra 1000 mg and writing prescription of 750 mg b.i.d.. Patient told that she may not drive for 6 months or until cleared by Neurology and verbalizes her understanding. Return precautions including recurrence of seizures, other neurologic symptoms such as numbness, tingling, weakness, blurred vision or other concerning symptoms. Patient appropriate for discharge Disposition: see below, along with detailed discharge instructions that have been reviewed with patient as well as indications for ED re-evaluation and additional outpatient follow up Discharge Plan Departure Patient Disposition: Home Clinical Impression: Generalized seizure Instructions: Seizure Disorder -- Adult Activity Restrictions/Additional Instructions: *You have been diagnosed with [seizure. As we discussed your history and physical exam as well as labs are reassuring. I did have a telephone conversation with the on-call neurologist at the [facility] and after discussing your case he recommended starting antiseizure medications. We gave your 1st dose tonight and I sent a prescription to your pharmacy] *What to do: *Please continue to take your regular medications as directed. [x ] New medication prescriptions sent to your pharmacy: [[facility] ] [ ] New medication written as a paper prescription [ ] No new medications given *Please follow up with your primary care provider as planned, however, as you've had another ER visit please call tomorrow and let them know that you were seen and evaluated in the emergency department. They may ask you to keep the same appointment, however sometimes they able bump it forward a bit. You will need to get a referral to Neurology from your primary care provider * as we discussed, you can not drive for 6 months or until you are cleared by Neurology. *Return to Emergency Department if you should have any new, worsening or concerning symptoms, such as [fever greater than 101 F, shaking chills, worsening pain, persistent vomiting or other bothersome symptoms] Prescriptions: New levetiracetam [Keppra] 750 mg tablet 750 mg PO BID Qty: 60 0RF No Action tamsulosin [Flomax] 0.4 mg capsule 0.4 mg PO DAILY Qty: 7 0RF meloxicam 7.5 mg tablet 7.5 mg PO BID PRN (Reason: pain) Qty: 20 0RF oxycodone 5 mg tablet 5 mg PO Q6H PRN (Reason: pain) Qty: 14 0RF Referrals: Vicenta Beverly MD [Primary Care Provider] - Stand Alone Forms: Patient Portal/API
[2022-07-25 22:54] VITALS: O2SAT 93
[2022-07-25 22:55] VITALS: BP 127/64; PULSE 65; O2SAT 98
[2022-07-25 23:00] VITALS: BP 127/64; PULSE 63; PULSE 64; O2SAT 92
--- NOTE | 2022-07-25 23:20 | PC.NURSE ---
Pt reports witnessed, tonic-clonic seizure while at work, confirmed by an [employer]UCK [employer] lasting approximately 3 mins. Pt presents A&Ox4. Reports this is 6th seizure in past 2 months. Has not seen a neurologist yet. Not on any medications for seizures at this time.
[2022-07-25 23:30] VITALS: PULSE 76
[2022-07-25] MEDS: levETIRAcetam 1,000 MG in SODIUM CHLORIDE 0.9% 100 ML 440 MG IV (23:33)
[2022-07-26] VITALS: PULSE 61; O2SAT 99
[2022-07-26 00:04] VITALS: BP 121/66; PULSE 60; O2SAT 100
[2022-07-26 00:30] VITALS: BP 121/66; PULSE 60; O2SAT 96
== END 2022-07-26 00:32 | disposition home or self-care (01) ==
PROVIDERS: Emergency Medicine; Emergency Provider Emergency Medicine; PCP Family Medicine
DX: G40.409 Other generalized epilepsy and epileptic syndromes, not intractable, without status epilepticus (principal)
CPT/HCPCS: 36415; 80048; 81003; 81025; 84146; 85025; 96365; 99283; 99284; J1953

== ENCOUNTER → 2022-08-12 17:06 | Outpatient (CLI) | payer OTHER, SELFPAY ==
--- NOTE | 2022-08-12 17:07 | DI.MRI.S_ITS ---
PROCEDURE: MR HEAD/BRAIN WO/W CON INDICATIONS: seizure activity TECHNIQUE: Noncontrast axial T1 spin echo, axial T2 fast spin echo, sagittal and axial FLAIR, axial gradient echo, axial diffusion and ADC, coronal thin-slice T2 FSE through the brain. Optional contrast, followed by axial and coronal and sagittal 3D VIBE or T1 spin echo with fat saturation sequences through the brain. COMPARISON: None. FINDINGS: Image quality: Excellent. CSF spaces: Ventricles are normal in size and shape. Basal cisterns are patent. No extra-axial fluid collections. Brain: No intracranial bleeds or mass effects. No abnormal intracranial enhancement. Teran-white matter interface appears intact. Diffusion weighted images demonstrate no acute ischemic insults. Brainstem appear normal. Normal intravascular flow voids are present. The hippocampal regions appear normal and symmetric in morphology. Skull and face: Calvarial marrow signal is normal. Orbits appear normal. Sinuses: Sinuses and mastoids are clear. IMPRESSION: 1. Negative brain MRI. 2. No explanation for seizure. 3. No acute process. No recent infarct. Dictated by: Joao Sung M.D. on 08/15/2022 at 9:25 Approved by: Joao Sung M.D. on 08/15/2022 at 9:32
== END ==
PROVIDERS: PCP Family Medicine; Referring Provider Family Medicine; Visit Provider Family Medicine
DX: R56.9 Unspecified convulsions (principal)
CPT/HCPCS: 70553; A9579

== ENCOUNTER 2023-04-12 13:38 | Emergency (ER) | payer SELFPAY ==
[2023-04-12 13:53] VITALS: BP 117/70; PULSE 92; RESP 12; O2SAT 99; BMI 30.7
--- NOTE | 2023-04-12 13:59 | DI.RAD.S_ITS ---
PROCEDURE: XR SHOULDER RT MIN 2V INDICATIONS: thinks she dislocated it TECHNIQUE: 2 views of the shoulder were acquired. COMPARISON: [facility], , SHOULDER MINIMUM 2VIEW RIGHT, 05/18/2014, 20:37. FINDINGS: Bones: No fractures or dislocations. No suspicious bony lesions. Visualized ribs appear intact. Soft tissues: No suspicious soft tissue calcifications. IMPRESSION: No acute fracture. No osseous lesion. If symptoms and/or clinical suspicion for pathology persist, further assessment with repeat, or advanced imaging (e.g., CT, MRI, or bone scan) may be helpful for further assessment. Dictated by: Joao Sung M.D. on 04/12/2023 at 14:37 Approved by: Joao Sung M.D. on 04/12/2023 at 14:37
[2023-04-12 14:05] VITALS: PULSE 90
--- NOTE | 2023-04-12 14:07 | ED_ITS ---
HPI - Extremity Injury (Upper) <Helen Cain PA-C - Last Filed: 04/12/23 18:07> General Chief Complaint: Extremity Injury, Upper Stated Complaint: fall, shoulder injury Time Seen by Provider: 04/12/23 13:55 Source: patient Mode of arrival: Ambulatory History of Present Illness HPI narrative: Patient is a 22-year-old female who presents with right shoulder pain. She reports that yesterday she slipped on some water while leaving the bathroom at her home. She was holding onto the edge of the sink with her right hand and as she fell, she did not let go of the sink. This twisted her shoulder and has cau sed her severe pain. The pain does not seem to be better this morning despite taking Tylenol last night. 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 She has not taken any medication for her pain today or tried any therapy. No history of shoulder problems. Related Data Home Medications Medication Instructions Recorded Confirmed lamotrigine 150 mg tablet 150 mg PO BID 04/12/23 04/12/23 Allergies Allergy/AdvReac Type Severity Reaction Status Date / Time No Known Drug Allergies Allergy Verified 07/27/22 08:33 Review of Systems <Helen Cain PA-C - Last Filed: 04/12/23 18:07> Review of Systems ROS Unobtainable: All systems reviewed & are unremarkable except as noted in HPI and below Patient History <Helen Cain PA-C - Last Filed: 04/12/23 18:07> Medical History No significant medical problems Menorrhagia Dysmenorrhea Reactive airway disease Social History Smoking Status: Never smoker Smoking Status: Never smoker alcohol intake frequency: holidays/special occasions only Substance Use Type: does not use Exam <Helen Cain PA-C - Last Filed: 04/12/23 18:07> Narrative Exam Narrative: GENERAL: 22 year old patient appears stated age. Well-developed patient, in no acute distress. NEURO: AOx3. HEAD: Atraumatic. Normocephalic. EYES: Pupils equal round and reactive. Extraocular motions intact. No scleral icterus. No injection or drainage. ENT: Nose without bleeding or purulent drainage. Airway patent. RESPIRATORY: No distress. EXTREMITIES: Tender to light palpation over the superior and anterior aspects of the right shoulder. Distal circulation is intact with strong radial pulse, 2nd cap refill. Patient has no pain at the wrist or the elbow and has full range of motion of those joints. Exam of the right shoulder is limited by pain. There is pain with abduction, extension and internal rotation. There is no pain with supination. SKIN: No rash or erythema of visible areas Initial Vital Signs Initial Vital Signs: Vital Signs Pulse Rate 92 H 04/12/23 13:53 Respiratory Rate 12 04/12/23 13:53 Blood Pressure 117/70 04/12/23 13:53 Pulse Oximetry 99 04/12/23 13:53 Oxygen Delivery Method Room Air 04/12/23 13:53 <Michelle Francisco DO - Last Filed: 04/17/23 20:14> Initial Vital Signs Initial Vital Signs: Vital Signs Pulse Rate 92 H 04/12/23 13:53 Respiratory Rate 12 04/12/23 13:53 Blood Pressure 117/70 04/12/23 13:53 Pulse Oximetry 99 04/12/23 13:53 Oxygen Delivery Method Room Air 04/12/23 13:53 Course <Helen Cain PA-C - Last Filed: 04/12/23 18:07> Orders Ordered: Discontinued Medications Ketorolac Tromethamine (Ketorolac 30 Mg/Ml Vial) 30 mg IM NOW ONE Stop: 04/12/23 14:06 Last Admin: 04/12/23 14:11 Dose: 30 mg Documented By: NIMISHA Vital Signs Vital signs: Vital Signs - 8 hr 04/12/23 13:53 04/12/23 14:05 04/12/23 15:09 Pulse Rate 92 H 83 Pulse Rate [Right Radial] 90 Respiratory Rate 12 14 Blood Pressure 117/70 119/60 Pulse Oximetry 99 98 Oxygen Delivery Method Room Air Room Air <Michelle Francisco DO - Last Filed: 04/17/23 20:14> Orders Ordered: Discontinued Medications Ketorolac Tromethamine (Ketorolac 30 Mg/Ml Vial) 30 mg IM NOW ONE Stop: 04/12/23 14:06 Last Admin: 04/12/23 14:11 Dose: 30 mg Documented By: NIMISHA Vital Signs Vital signs: Vital Signs - 8 hr 04/12/23 13:53 04/12/23 14:05 04/12/23 15:09 Pulse Rate 92 H 83 Pulse Rate [Right Radial] 90 Respiratory Rate 12 14 Blood Pressure 117/70 119/60 Pulse Oximetry 99 98 Oxygen Delivery Method Room Air Room Air MDM - Extremity Injury (Upper) <Helen Cain PA-C - Last Filed: 04/12/23 18:07> Imaging Data Extremity x-ray #1: Radiologist's Impression: PROCEDURE: XR SHOULDER RT MIN 2V INDICATIONS: thinks she dislocated it TECHNIQUE: 2 views of the shoulder were acquired. COMPARISON: [facility], , SHOULDER MINIMUM 2VIEW RIGHT, 05/18/2014, 20:37. FINDINGS: Bones: No fractures or dislocations. No suspicious bony lesions. Visualized ribs appear intact. Soft tissues: No suspicious soft tissue calcifications. IMPRESSION: No acute fracture. No osseous lesion. If symptoms and/or clinical suspicion for pathology persist, further assessment with repeat, or advanced imaging (e.g., CT, MRI, or bone scan) may be helpful for further assessment. Dictated by: Joao Sung M.D. on 04/12/2023 at 14:37 Approved by: Joao Sung M.D. on 04/12/2023 at 14:37 [facility] Narrative Medical decision making narrative: Multiple etiologies for patient's symptoms considered including, but not limited to: Fracture, dislocation, strain/sprain Patient with a right shoulder pain after an injury yesterday. There is no evidence of dislocation or fracture on her x-ray. Suspect soft tissue injury. Advised rest, ice, NSAIDs. Patient placed in his sling. Discussed appropriate use of the sling to include when she needs to walk around or go to work but she needs to take it off multiple times a day and do [id number] exercises with her shoulder. Demonstrated how to perform shoulder circles to gravity. Patient states understanding. Patient given a note to ask her work to accommodate her for light duty for the next week. She prefers not to be referred to physical therapy, states she will follow up with Dr. Beverly if needed. Patient's symptoms improved over duration of stay with above-stated therapies. Findings and discharge diagnosis discussed with patient/family followed by verbalization of understanding Return precautions discussed with patient/family whom verbalize understanding of diagnosis and plan Discharge Plan Departure Patient Disposition: Home Clinical Impression: Right shoulder strain Qualifiers: Encounter type: initial encounter Qualified Code(s): S46.911A - Strain of unspecified muscle, fascia and tendon at shoulder and upper arm level, right arm, initial encounter Instructions: DI for Shoulder Sprain Activity Restrictions/Additional Instructions: *You have been diagnosed with right shoulder sprain. There is no evidence of bony injury or dislocation on x-ray. You are advised to use: R: rest. take it easy and listen to your body! I: ice. apply ice for 20 minutes every 2 hours while awake. Do not put ice directly on the skin. C: compression. Gentle compression with melissa wrap or splint will decrease pain and swelling. E: elevation. Keep extremity elevated above the heart whenever possible. Use tylenol or ibuprofen for inflammation and pain. It is generally safe to take up to 3-4grams of tylenol in 24 hours, or 2400mg of ibuprofen in 24 hours. If you have questions about dosing or whether these medications are safe for you, please ask a healthcare provider. You have been discharged with a sling. Please use the sling to support your arm when walking or working. You must take the sling off multiple times a day and do some [id number] exercises with your arm. You will make more complications for yourself if you wear the sling frequently or all the time. Make sure you move the shoulder through the full range of motion at least several times a day. Please follow up with your PCP if this is not improving with conservative therapy in 7-10 days. I have attached a work note to request light duty for you. *What to do: *Please continue to take your regular medications as directed. [ ] New medication prescriptions sent to your pharmacy: [ ] [ ] New medication written as a paper prescription [x] No new medications given *Please follow up with your primary care provider in 2-3 days, call for an appointment. Let them know you were seen in the Emergency Department and that we ask that you be seen in follow up. We will electronically transmit a record of today's note if your PCP is in our system *If you do not have a primary care provider please contact the [facility] Resource line at [phone]. They will ask some questions about your medical history and help get you set up with a doctor in the community. *Return to Emergency Department if you should have any new, worsening or concerning symptoms, such as [fever greater than 101 F, shaking chills, worsening pain, persistent vomiting or other concerning symptoms]. Prescriptions: Discontinued levetiracetam [Keppra] 750 mg tablet See Rx Instructions PO QID Rx Instructions: 375mg orally four times daily; tamsulosin [Flomax] 0.4 mg capsule 0.4 mg PO DAILY Qty: 7 0RF meloxicam 7.5 mg tablet 7.5 mg PO BID PRN (Reason: pain) Qty: 20 0RF oxycodone 5 mg tablet 5 mg PO Q6H PRN (Reason: pain) Qty: 14 0RF No Action lamotrigine 150 mg Tablet 150 mg PO BID Referrals: Vicenta Beverly MD [Primary Care Provider] - Stand Alone Forms: Patient Portal/API, Work Release Note ED Sign-out <Michelle Francisco DO - Last Filed: 04/17/23 20:14> Cosign ED Attending Cosignature Attestation: Or I was immediately available in the department for consultation.
[2023-04-12] MEDS: KETOROLAC 30 MG/ML VIAL IM (14:11)
[2023-04-12 15:09] VITALS: BP 119/60; PULSE 83; RESP 14; O2SAT 98
== END 2023-04-12 15:09 | disposition home or self-care (01) ==
PROVIDERS: Emergency Provider Physician Assistant; PCP Family Medicine
DX: S46.911A Strain of unspecified muscle, fascia and tendon at shoulder and upper arm level, right arm, initial encounter (principal); W01.0XXA Fall on same level from slipping, tripping and stumbling without subsequent striking against object, initial encounter
CPT/HCPCS: 73030; 96372; 99283; J1885

== ENCOUNTER 2024-01-11 21:04 | Emergency (ER) | payer SELFPAY ==
[2024-01-11 21:19] VITALS: BP 138/78; PULSE 88; RESP 18; TEMP 36.8; O2SAT 98; BMI 33.9
--- NOTE | 2024-01-11 21:23 | DI.RAD.S_ITS ---
PROCEDURE: XR ANKLE RT MIN 3V INDICATIONS: fall/pain/felt a pop TECHNIQUE: 3 views of the ankle were acquired. COMPARISON: [facility], CR, XR ANKLE RT MIN 3V, 10/06/2017, 16:04. FINDINGS: Bones: No acute fractures or dislocations. Ankle mortise is normally aligned. No suspicious bony lesions. Soft tissues: No tibiotalar joint effusion. Achilles tendon appears normal. Lateral malleolar soft tissue edema. IMPRESSION: Lateral malleolar soft tissue swelling without underlying fracture or dislocation. If there is persistent clinical concern for occult fracture given adequate mechanism of injury, consider repeat imaging in 10-14 days. Dictated by: Neo Dueñas M.D. on 01/11/2024 at 21:45 Approved by: Neo Dueñas M.D. on 01/11/2024 at 21:46
[2024-01-12 00:51] VITALS: BP 125/60; PULSE 86; RESP 16; TEMP 36.9
[2024-01-12 03:00] VITALS: BP 107/58; PULSE 58; RESP 18; O2SAT 98
--- NOTE | 2024-01-12 03:08 | ED_ITS ---
HPI - Extremity Injury (Lower) General Chief Complaint: Extremity Injury, Lower Stated Complaint: poss broken ankle Time Seen by Provider: 01/12/24 03:08 Source: patient Mode of arrival: Ambulatory History of Present Illness HPI Narrative: 23-year-old female twisted her right ankle last night 6:30 p.m., outside slipped on a sidewalk curb, twisting her right ankle. She denies discomfort to the right toes, foot, proximal leg, knee, thigh, hip. No upper extremity injuries. She did not hit her head. She denies specifically any pain to her head, face, neck, upper back, mid lower back, chest abdomen and pelvis. She had small bruise to her left anterior foreleg, no other left lower extremity injuries or pain. Related Data Home Medications Medication Instructions Recorded Confirmed lamotrigine 150 mg tablet 150 mg PO BID 04/12/23 04/12/23 Allergies Allergy/AdvReac Type Severity Reaction Status Date / Time No Known Drug Allergies Allergy Verified 07/27/22 08:33 Review of Systems Review of Systems Narrative: see HPI Patient History Medical History No significant medical problems Menorrhagia Dysmenorrhea Reactive airway disease Social History Smoking Status: Current every day smoker Smoking Status: Current every day smoker tobacco type: vaping alcohol intake frequency: holidays/special occasions only Substance Use Type: does not use Exam Narrative Exam Narrative: GENERAL: Well-developed patient, in mild distress. HEAD: Atraumatic. Normocephalic. EYES: Pupils equal round and reactive. Extraocular motions intact. No scleral icterus. No injection or drainage. ENT: Nose without bleeding, purulent drainage. Throat without erythema, tonsillar hypertrophy or exudate. Airway patent. NECK: Trachea midline. Non tender CARDIOVASCULAR: Regular rate and rhythm without murmurs, gallops, or rubs. RESPIRATORY: Clear to auscultation. Breath sounds equal bilaterally. No wheezes, rales, or rhonchi. GASTROINTESTINAL: Abdomen soft, non-tender, nondistended. EXTREMITIES: Tenderness right ankle lateral malleolus, no medial joint line tenderness abdomen no gross deformity. Good DP pulse cap refill. Toes not obviously tender or swollen, no tenderness base of 5th metatarsal right foot. No tenderness to the proximal foreleg, knee, thigh. Left lower leg anterior small linear scratches noted. No gross deformities. No tenderness left ankle or foot. BACK: Nontender without deformity or crepitance. No flank tenderness. NEURO: AOx3. Motor functions grossly nonfocal SKIN: No rash or erythema of visible areas Initial Vital Signs Initial Vital Signs: Vital Signs Temperature 98.3 F 01/11/24 21:19 Pulse Rate 88 01/11/24 21:19 Respiratory Rate 18 01/11/24 21:19 Blood Pressure 138/78 01/11/24 21:19 Pulse Oximetry 98 01/11/24 21:19 Oxygen Delivery Method Room Air 01/11/24 21:19 Course Orders Ordered: ED Orders 01/11/24 21:23 XR ankle RT min 3V Stat Vital Signs Vital signs: Vital Signs - 8 hr 01/12/24 00:51 01/12/24 03:00 Temperature 98.4 F Pulse Rate 86 58 L Respiratory Rate 16 18 Blood Pressure 125/60 107/58 L Pulse Oximetry 98 Oxygen Delivery Method Room Air MDM - Extremity Injury (Lower) Imaging Data Extremity x-ray #1: Radiologist's Impression: [address] [address] XRay Report Signed Patient: Charlene Calixto MR#: [id number] : 2000 Acct:[id number] Age/Sex: 23 / F Date of Service: 01/11/24 Loc: ED Accession Number: [id number] Procedure: XR ankle RT min 3V Ordering Provider: Oswaldo Chapman MD PROCEDURE: XR ANKLE RT MIN 3V INDICATIONS: fall/pain/felt a pop TECHNIQUE: 3 views of the ankle were acquired. COMPARISON: [facility], , XR ANKLE RT MIN 3V, 10/06/2017, 16:04. FINDINGS: Bones: No acute fractures or dislocations. Ankle mortise is normally aligned. No suspicious bony lesions. Soft tissues: No tibiotalar joint effusion. Achilles tendon appears normal. Lateral malleolar soft tissue edema. IMPRESSION: Lateral malleolar soft tissue swelling without underlying fracture or dislocation. If there is persistent clinical concern for occult fracture given adequate mechanism of injury, consider repeat imaging in 10-14 days. Dictated by: Neo Dueañs M.D. on 01/11/2024 at 21:45 Approved by: Neo Dueñas M.D. on 01/11/2024 at 21:46 [facility] Narrative Medical decision making narrative: 23-year-old female with right ankle inversion twist injury slipping off the edge of an outdoor sidewalk curb edge 6:30 p.m. last night, lateral malleolar tenderness and swelling on examination. Superficial abrasions to the left anterior foreleg, no other injuries obvious. X-rays right ankle ordered. No left lower extremity x-rays indicated. Right ankle x-ray series negative for fracture. Patient has too much pain to attempt bear weight she says, we would like to take [id number] Tylenol and or Motrin. We will place in walking boot, nonweightbearing with crutches for now. Ice elevation discussed. Recheck with regular provider advised Monday after this . Return precautions discussed. Home with family Discharge Plan Departure Patient Disposition: Home Clinical Impression: Strain of right ankle Activity Restrictions/Additional Instructions: Right ankle twist injury slipping off the edge of the an outdoor curb edge last night, with lateral ankle tenderness and some swelling on examination. Superficial abrasion changes to the left foreleg, no other obvious injuries. X- rays to the right ankle showed no obvious fracture per Radiology report. Pain too much to attempt to bear weight. Nonweightbearing with crutches, use of immobilization walking boot, but do not put any pressure down on the foot/ankle for now. Rest, elevation, icel. Continue taking your meloxicam anti- inflammatory medication. If you do not we will any longer take meloxicam consider use of [id number] ibuprofen, can add [id number] Tylenol as needed. Recheck symptoms with your regular doctor on Monday. Return to this/nearest emergency department for any change worsening symptoms or any concerns Prescriptions: No Action lamotrigine 150 mg Tablet 150 mg PO BID Referrals: Vicenta Beverly MD [Primary Care Provider] - Stand Alone Forms: Patient Portal/API/Survey
== END 2024-01-12 03:55 | disposition home or self-care (01) ==
PROVIDERS: Emergency Provider Emergency Medicine; PCP Family Medicine
DX: S96.911A Strain of unspecified muscle and tendon at ankle and foot level, right foot, initial encounter (principal); X50.1XXA Overexertion from prolonged static or awkward postures, initial encounter
CPT/HCPCS: 73610; 99282; 99283

== ENCOUNTER 2024-03-24 08:55 | Emergency (ER) | payer OTHER, SELFPAY ==
[2024-03-24 09:13] VITALS: BP 126/81; PULSE 76; RESP 16; TEMP 36.6; O2SAT 100; BMI 36.8
--- NOTE | 2024-03-24 09:21 | PC.NURSE ---
Pt states approx 40 min ago she closed a car door on her right thumb. Acrylic nails noted to be on finger. Small amount of bruising noted at top of thumb nail. Pt reports pain is minimal. Denies taking any medicine before coming to ER. Pt able to move thumb w/o issue. No external bleeding noted. cap refill <2 seconds. No deformity noted. No open skin breaks noted.
--- NOTE | 2024-03-24 09:27 | ED.UPPEXIN ---
HPI - Extremity Injury (Upper) General Chief Complaint: Extremity Injury, Upper Stated Complaint: slammed car door on R thumb Time Seen by Provider: 03/24/24 09:05 History of Present Illness HPI narrative: 23-year-old 8 weeks got her left thumb tip caught in a car door. She does have false nails on it was not enough to dislodge the nail. There is some minor amount of subungual hematoma. No redness still good range of motion the joint. Pain is controlled. Comes in for further evaluation. Related Data Home Medications Medication Instructions Recorded Confirmed lamotrigine 150 mg tablet 150 mg PO BID 04/12/23 01/17/24 Allergies Allergy/AdvReac Type Severity Reaction Status Date / Time No Known Drug Allergies Allergy Verified 01/17/24 15:57 Review of Systems Review of Systems Narrative: Pertinent positive and negative findings as per HPI Patient History Medical History No significant medical problems Menorrhagia Dysmenorrhea Reactive airway disease Social History Smoking Status: Current every day smoker Smoking Status: Current every day smoker tobacco type: vaping alcohol intake frequency: holidays/special occasions only Exam Initial Vital Signs Initial Vital Signs: Vital Signs Temperature 97.8 F 03/24/24 09:13 Pulse Rate 76 03/24/24 09:13 Respiratory Rate 16 03/24/24 09:13 Blood Pressure 126/81 03/24/24 09:13 Pulse Oximetry 100 03/24/24 09:13 Oxygen Delivery Method Room Air 03/24/24 09:13 General: Alert appropriate in no acute distress Respiratory: Able to speak in full sentences, no obvious respiratory distress Skin: No obvious rashes, warm and dry Neurologic: Grossly intact no obvious asymmetries or abnormalities Psych: appropriate insight and affect, cooperative Extremity: Left thumb with minor subungual hematoma at the base. Thumb joint has good range of motion. No lacerations, no skin breakdown Course Vital Signs Vital signs: Vital Signs - 8 hr 03/24/24 09:13 Temperature 97.8 F Pulse Rate 76 Respiratory Rate 16 Blood Pressure 126/81 Pulse Oximetry 100 Oxygen Delivery Method Room Air MDM - Extremity Injury (Upper) MDM Narrative Medical decision making narrative: 23-year-old woman caught her thumb, the tip, in the car door. There is minor injury. Small subungual bruise with no evidence of more significant damage. With shared decision-making knowing that an x-ray would not change decision points and she is we decided against imaging studies. Given the only minimal pain, non enlarging subungual hematoma with shared decision-making we opted to not drain that or do any puncture hole through the nail bed itself. She is placed in aluminum splint to protect the tip of the nail. She is neurovascularly intact pre and post placement. Discussed reasons to return to the emergency department and she is safe for discharge Discharge Plan Departure Patient Disposition: Home Clinical Impression: Crushing injury of thumb, left Qualifiers: Encounter type: initial encounter Qualified Code(s): S67.02XA - Crushing injury of left thumb, initial encounter Activity Restrictions/Additional Instructions: Thank you for coming in today I am sorry that you are caught your finger in the car door. Fortunately, there was no evidence that you broke your thumb or have significant bleeding under the nail. There is a small amount of bleeding but I do not think that needs to be drained at this time. Using 400 mg of ibuprofen (2 [id number] pills) and 1 Tylenol every 6 hours can be very helpful in controlling pain. If you find that you are getting worse or develop any new symptoms, please feel free to return to the emergency department for further evaluation. Prescriptions: No Action lamotrigine 150 mg Tablet 150 mg PO BID Referrals: Vicenta Beverly MD [Primary Care Provider] - Stand Alone Forms: Patient Portal/API/Survey
== END 2024-03-24 09:37 | disposition home or self-care (01) ==
PROVIDERS: Emergency Provider Emergency Medicine; PCP Family Medicine
DX: S67.02XA Crushing injury of left thumb, initial encounter (principal); W23.0XXA Caught, crushed, jammed, or pinched between moving objects, initial encounter
CPT/HCPCS: 99281

== ENCOUNTER → 2024-05-06 11:28 | Outpatient (CLI) | payer OTHER, SELFPAY ==
[2024-05-06 12:01] LABS: Add Manual Diff / Slide Review NO; Basophils Absolute Auto 100 /uL (0-100); Basophils Percent Auto 0.5 % (0-2); Eosinophils Absolute Auto 0 /uL (0-450); Eosinophils Percent Auto 0.2 % (2-4); Hematocrit 38.8 % (36-46); Hemoglobin 13.3 g/dL (12.0-16.0); Lymphocytes Absolute Auto 1900 /uL (1100-4500); Lymphocytes Percent Auto 18.4 % (25-40); Mean Corpuscular HGB Conc 34.4 % (30-36); Mean Corpuscular Volume 81.2 fL (80-100); Monocytes Absolute Auto 400 /uL (0-900); Monocytes Percent Auto 3.8 % (3-14); Neutrophils Absolute Auto 8100 /uL (1500-7000); Neutrophils Percent Auto 77.1 % (50-75); Platelet Count 275 X10^3/uL (150-400); Red Blood Cell Count 4.77 X10^6/uL (4.0-5.2); Red Cell Distribution Width 13.5 % (11.6-14.8); White Blood Cell Count 10.5 X10^3/uL (4.5-11.0)
[2024-05-06 12:09] LABS: Hemoglobin A1C% w Est Avg Glu 4.5 % (4.0-6.0)
[2024-05-06 13:23] LABS: Appearance Urine UA CLEAR; Bilirubin Urine UA NEGATIVE (NEGATIVE); Color Urine UA YELLOW; Glucose Urine UA NEGATIVE (Negative); Ketones Urine UA 1+ (NEGATIVE); Leukocyte Esterase Urine UA NEGATIVE (NEGATIVE); Nitrite Urine UA NEGATIVE (Negative); Occult Blood Urine UA NEGATIVE (Negative); Protein Urine UA NEGATIVE (Negative); Urobilinogen Urine UA 0.2 E.U./dL (0.2)
[2024-05-06 15:50] LABS: HIV 1 & 2 Ab/Ag 4th Gen Combo NEGATIVE (NEGATIVE); Hep C Virus Ab w/Reflex Quant NEGATIVE s/c (NEGATIVE); Hepatitis B Surface Antigen NEGATIVE s/c (NEGATIVE); Rubella Antibody IgG 47.1 IU/mL (>15)
[2024-05-07 06:36] LABS: RPR Screen Non Reactive (Non Reactive)
[2024-05-07 10:29] LABS: Varicella IgG Antibody Reactive (Non Reactive)
== END ==
PROVIDERS: PCP Family Medicine; Referring Provider Family Medicine; Visit Provider Family Medicine
DX: O99.210 Obesity complicating pregnancy, unspecified trimester (principal)
CPT/HCPCS: 36415; 80055; 81003; 83036; 86787; 86803; 86850; 86900; 86901; 87086; 87389

== ENCOUNTER 2024-05-13 15:41 | Emergency (ER) | payer OTHER, SELFPAY ==
[2024-05-13 16:00] VITALS: BP 134/63; PULSE 89; RESP 16; TEMP 36.7; O2SAT 99; BMI 35.0
--- NOTE | 2024-05-13 16:04 | DI.RAD.S_ITS ---
PROCEDURE: XR SHOULDER RT MIN 2V INDICATIONS: felt pop/pain TECHNIQUE: 3 views of the shoulder were acquired. COMPARISON: [facility], CR, XR SHOULDER RT MIN 2V, 04/12/2023, 14:03. FINDINGS: Bones: No fractures or dislocations. No suspicious bony lesions. Visualized ribs appear intact. Soft tissues: No suspicious soft tissue calcifications. IMPRESSION: No acute osseous abnormality. If pain persists with conservative management, consider repeat x-ray in 10-14 days or cross-sectional imaging. Dictated by: Varun Mcclure M.D. on 05/13/2024 at 16:43 Approved by: Varun Mcclure M.D. on 05/13/2024 at 16:49
[2024-05-13 17:19] VITALS: PULSE 78
--- NOTE | 2024-05-13 17:20 | ED_ITS ---
HPI - Extremity Injury (Upper) <Sade Vidal PA-C - Last Filed: 05/13/24 18:06> General Chief Complaint: Extremity Injury, Upper Stated Complaint: Shoulder injury Time Seen by Provider: 05/13/24 17:20 History of Present Illness HPI narrative: 23-year-old female who is 13 weeks presents to the ED with 2 days of right shoulder pain. 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 Patient states that her shoulder is still painful today. No numbness, tingling, weakness. Related Data Home Medications Medication Instructions Recorded Confirmed lamotrigine 150 mg tablet 150 mg PO BID 04/12/23 05/06/24 folic acid 4 mg PO DAILY 04/04/24 05/06/24 vitamin-ferrous sulfate tab PO 04/04/24 05/06/24 27 mg iron-folic acid 0.8 mg tablet Previous Rx's Medication Instructions Recorded ondansetron 4 mg disintegrating 4 mg PO Q6H PRN nausea and 04/09/24 tablet vomiting #30 tabs Allergies Allergy/AdvReac Type Severity Reaction Status Date / Time No Known Drug Allergies Allergy Verified 05/06/24 10:59 Review of Systems <Sade Vidal PA-C - Last Filed: 05/13/24 18:06> Constitutional Constitutional: Denies chills, Denies fatigue, Denies fever(s), Denies frequent falls, Denies lethargy and Denies weakness Eyes Eyes: Denies change in vision, Denies eye discharge, Denies irritation and Denies loss of vision ENT Ears, Nose, Mouth, and Throat: Denies change in voice, Denies dizziness, Denies neck pain, Denies sore throat and Denies throat swelling Cardiovascular Cardiovascular: Denies chest pain, Denies irregular heart rhythm, Denies lightheadedness, Denies palpitations, Denies dyspnea, Denies dyspnea on exertion and Denies orthopnea Respiratory Respiratory: Denies cough, Denies dyspnea, Denies dyspnea on exertion and Denies wheezing Gastrointestinal Gastrointestinal: Denies abdominal pain, Denies change in bowel habits, Denies diarrhea, Denies nausea and Denies vomiting Musculoskeletal Musculoskeletal: Denies neck pain and Denies numbness Comments: Right shoulder pain Integumentary/Breasts Skin/Breast: Denies pruritus, Denies erythema, Denies rash and Denies wounds Neurologic Neurologic: Denies behavioral changes, Denies confusion, Denies dizziness, Denies frequent falls, Denies loss of vision, Denies numbness and Denies we akness Psychiatric Psychiatric: Denies anxiety, Denies behavioral changes, Denies confusion, Denies depression, Denies homicidal ideation and Denies suicidal ideation Endocrine Endocrine: Denies fatigue, Denies flushing and Denies palpitations Hematologic/Lymphatic Hematologic/Lymphatic: Denies easy bruising Allergic/Immunologic Allergic/Immunologic: Denies urticaria, Denies throat swelling and Denies wheezing Patient History <Sade Vidal PA-C - Last Filed: 05/13/24 18:06> Medical History Seizure disorder Clavicle fracture (~2003) Thumb dislocation Shoulder dislocation (~2018) Radial fracture (~2020) Menorrhagia Dysmenorrhea Reactive airway disease Surgical History No pertinent past surgical history Family History Mother Osteoarthritis Bipolar disorder Father Asthma Grandmother Smoker Cervical cancer Bladder cancer Bipolar disorder Grandfather Smoker COPD (chronic obstructive pulmonary disease) Osteoarthritis Grandmother Melanoma Major depressive disorder Grandfather History of cholecystectomy Aunt Bipolar disorder Social History marital status: number of children: 0 household members: spouse lives independently: Yes pets and animals: Yes (cats, dog) education level: high school 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) current occupational exposures/hazards: Yes special radha needs: No travel history: recent (domestic only) seatbelt use: always water heater temp set < 120 deg: Yes working smoke detector in home: Yes fire extinguisher in home: Yes carbon monox detector in home: Yes firearms in home: No do you feel safe at home: Yes Smoking Status: Former smoker second hand exposure: Yes ( smokes) alcohol intake: former (rarely when not ) substance use type: marijuana (not recently, as a teen) during the past year weight has: remained stable well-balanced diet: about half the time daily servings fruits/ve-4 caffeine: Yes (occasional AM cup coffee) Type(s) of exercise: aerobic and weight lifting frequency: 3-4 times per week Smoking Status: Former smoker tobacco type: vaping alcohol intake frequency: holidays/special occasions only Exam <Sade Vidal PA-C - Last Filed: 05/13/24 18:06> Narrative Exam Narrative: Const General:?cooperative, healthy appearing and comfortable [facility] Head:?normal to inspection Ears:?hearing grossly normal bilaterally Nose:?external nose normal Face and sinus:?normal facial exam and sinuses nontender Mouth:?oral mucosae normal Throat:?posterior oropharynx normal Eyes General:?appearance normal, both eyes and all related structures Neck Neck:?normal visual inspection and no lymphadenopathy noted Resp Effort & Inspection:?normal respiratory effort Auscultation:?clear to auscultation bilaterally Cardio Rate:?regular rate Rhythm:?regular rhythm Musculoskeletal No bony tenderness to palpation, no deformities, no bruising. Range of motion limited by pain. Strength and sensation is intact. Neurovascularly intact. Neuro General:?patient alert, patient awake and patient oriented x3 Initial Vital Signs Initial Vital Signs: Vital Signs Temperature 98.0 F 05/13/24 16:00 Pulse Rate 89 05/13/24 16:00 Respiratory Rate 16 05/13/24 16:00 Blood Pressure 134/63 05/13/24 16:00 Pulse Oximetry 99 05/13/24 16:00 Oxygen Delivery Method Room Air 05/13/24 16:00 <Michael Rodriguez MD - Last Filed: 05/16/24 20:11> Initial Vital Signs Initial Vital Signs: Vital Signs Temperature 98.0 F 05/13/24 16:00 Pulse Rate 89 05/13/24 16:00 Respiratory Rate 16 05/13/24 16:00 Blood Pressure 134/63 05/13/24 16:00 Pulse Oximetry 99 05/13/24 16:00 Oxygen Delivery Method Room Air 05/13/24 16:00 Course <Sade Vidal PA-C - Last Filed: 05/13/24 18:06> Orders Ordered: ED Orders 05/13/24 16:04 XR shoulder RT min 2V Stat Vital Signs Vital signs: Vital Signs - 8 hr 05/13/24 16:00 05/13/24 17:19 05/13/24 18:01 Temperature 98.0 F 98.2 F Pulse Rate 89 82 Pulse Rate [Right Radial] 78 Respiratory Rate 16 20 Blood Pressure 134/63 128/76 Pulse Oximetry 99 99 Oxygen Delivery Method Room Air Room Air <Michael Rodriguez MD - Last Filed: 05/16/24 20:11> Orders Ordered: ED Orders 05/13/24 16:04 XR shoulder RT min 2V Stat Vital Signs Vital signs: Vital Signs - 8 hr 05/13/24 16:00 05/13/24 17:19 05/13/24 18:01 Temperature 98.0 F 98.2 F Pulse Rate 89 82 Pulse Rate [Right Radial] 78 Respiratory Rate 16 20 Blood Pressure 134/63 128/76 Pulse Oximetry 99 99 Oxygen Delivery Method Room Air Room Air MDM - Extremity Injury (Upper) <Sade Vidal PA-C - Last Filed: 05/13/24 18:06> MDM Narrative Medical decision making narrative: 23-year-old female who is 13 weeks presents to the ED with 2 days of right shoulder pain. X-ray was obtained to rule out fracture/dislocation. X- ray shows no acute osseous abnormality. Discussed findings with patient. Patient provided with a sling for healing and comfort. Recommend Tylenol, heat packs/ice packs. Recommend follow-up with PCP as soon as possible. ED return precautions discussed with patient. Patient verbalized understanding. Medical records reviewed: Yes Discharge Plan Departure Patient Disposition: Home Clinical Impression: Injury of shoulder, right Qualifiers: Encounter type: initial encounter Qualified Code(s): S49.91XA - Unspecified injury of right shoulder and upper arm, initial encounter Instructions: DI for Shoulder Sprain Activity Restrictions/Additional Instructions: You were evaluated in the ED today for a shoulder injury. Your x-ray did not show any fractures or dislocation. It appears that you have a musculoskeletal sprain/strain of the right shoulder. You have been provided a sling for comfort and healing. You may also take Tylenol, apply heat or ice. Please follow-up with your PCP if your symptoms do not improve over the next few days. Return to the ED if you have worsening symptoms, numbness, tingling, weakness. Prescriptions: No Action ondansetron 4 mg tablet,disintegrating 4 mg PO Q6H PRN (Reason: nausea and vomiting) Qty: 30 0RF vit-ferrous sulfat-FA 27 mg iron- 0.8 mg tablet PO folic acid 4 mg 4 mg tablet PO DAILY lamotrigine 150 mg Tablet 150 mg PO BID Referrals: Vicenta Beverly MD [Primary Care Provider] - Stand Alone Forms: Patient Portal/API/Survey ED Sign-out <Michael Rodriguez MD - Last Filed: 05/16/24 20:11> Cosign ED Attending Cosignature Attestation: I was immediately available in the department for consultation. ?This documentation has been reviewed and I agree with assessment and plan. Supervised by Michael Rodriguez MD
[2024-05-13 18:01] VITALS: BP 128/76; PULSE 82; RESP 20; TEMP 36.8; O2SAT 99
== END 2024-05-13 18:01 | disposition home or self-care (01) ==
PROVIDERS: Emergency Provider Student in an Organized Health Care Education/Training Program; PCP Family Medicine
DX: O9A.211 Injury, poisoning and certain other consequences of external causes complicating pregnancy, first trimester (principal); S49.91XA Unspecified injury of right shoulder and upper arm, initial encounter; Z3A.13 13 weeks gestation of pregnancy; X50.0XXA Overexertion from strenuous movement or load, initial encounter
CPT/HCPCS: 73030; 99282; 99283

== ENCOUNTER → 2024-06-03 11:31 | Outpatient (CLI) | payer OTHER, SELFPAY ==
[2024-06-03 12:54] LABS: Natera Collection Specimen Collected
== END ==
PROVIDERS: PCP Family Medicine; Referring Provider Family Medicine; Visit Provider Family Medicine
DX: O09.521 Supervision of elderly multigravida, first trimester (principal)
CPT/HCPCS: 36415

== ENCOUNTER 2024-06-19 09:56 | Emergency (ER) | payer OTHER, SELFPAY ==
--- NOTE | 2024-06-19 10:05 | ED.GENADULT ---
HPI - General Adult General Chief complaint: Nausea/Vomiting/Diarrhea Stated complaint: sent from [facility] 18 Weeks vomiting Time Seen by Provider: 06/19/24 10:02 History of Present Illness HPI narrative: 23-year-old female SAB 1 with current reported to be about 18 weeks gestation, EDC 11/19/2024 by ultrasound, care by Dr. Beverly, has had multiple episodes of emesis and also diarrhea since yesterday. No fevers or chills. No vaginal bleeding. No cough or shortness of breath. Has some sore throat patient attributes to frequent episodes of vomiting. No household/close contact exposures to persons with similar GI symptoms. No recent antibiotic exposure recalled. Awaiting next care visit later this month. Related Data Home Medications Medication Instructions Recorded Confirmed lamotrigine 150 mg tablet 150 mg PO BID 04/12/23 06/19/24 folic acid 4 mg PO DAILY 04/04/24 06/19/24 vitamin-ferrous sulfate tab PO 04/04/24 06/19/24 27 mg iron-folic acid 0.8 mg tablet Previous Rx's Medication Instructions Recorded ondansetron 4 mg disintegrating 4 mg PO Q6H PRN nausea and 06/03/24 tablet vomiting #30 tabs ondansetron 4 mg disintegrating 4 mg PO Q6H PRN nausea and 06/19/24 tablet vomiting #7 tabs Allergies Allergy/AdvReac Type Severity Reaction Status Date / Time No Known Drug Allergies Allergy Verified 06/19/24 10:17 Patient History Medical History Seizure disorder Clavicle fracture (~2003) Thumb dislocation Shoulder dislocation (~2018) Radial fracture (~2020) Menorrhagia Dysmenorrhea Reactive airway disease Surgical History No pertinent past surgical history Family History Mother Osteoarthritis Bipolar disorder Father Asthma Grandmother Smoker Cervical cancer Bladder cancer Bipolar disorder Grandfather Smoker COPD (chronic obstructive pulmonary disease) Osteoarthritis Grandmother Melanoma Major depressive disorder Grandfather History of cholecystectomy Aunt Bipolar disorder Social History marital status: number of children: 0 household members: spouse lives independently: Yes pets and animals: Yes (cats, dog) education level: high school 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) current occupational exposures/hazards: Yes special radha needs: No travel history: recent (domestic only) seatbelt use: always water heater temp set < 120 deg: Yes working smoke detector in home: Yes fire extinguisher in home: Yes carbon monox detector in home: Yes firearms in home: No do you feel safe at home: Yes second hand exposure: Yes ( smokes) alcohol intake: former (rarely when not ) substance use type: marijuana (not recently, as a teen) during the past year weight has: remained stable well-balanced diet: about half the time daily servings fruits/ve-4 caffeine: Yes (occasional AM cup coffee) Type(s) of exercise: aerobic and weight lifting frequency: 3-4 times per week tobacco type: vaping alcohol intake frequency: holidays/special occasions only Exam Narrative Exam Narrative: GENERAL: Well-developed patient, in mild distress. HEAD: Atraumatic. Normocephalic. EYES: Pupils equal round and reactive. Extraocular motions intact. No scleral icterus. No injection or drainage. ENT: Nose without bleeding, purulent drainage. Throat without erythema, tonsillar hypertrophy or exudate. Airway patent. NECK: Trachea midline. Non tender CARDIOVASCULAR: Regular rate and rhythm without murmurs, gallops, or rubs. RESPIRATORY: Clear to auscultation. Breath sounds equal bilaterally. No wheezes, rales, or rhonchi. GASTROINTESTINAL: Abdomen soft, non-tender, nondistended. heart tones documented 146 per nursing note. EXTREMITIES: No edema or joint tenderness. BACK: Nontender without deformity or crepitance. No flank tenderness. NEURO: AOx3. Motor functions grossly nonfocal SKIN: No rash or erythema of visible areas Initial Vital Signs Initial Vital Signs: Vital Signs Pulse Rate 93 H 06/19/24 10:06 Pulse Oximetry 97 06/19/24 10:06 Course Orders Ordered: Discontinued Medications Famotidine (Famotidine 20 Mg/2 Ml Vial) 20 mg IV NOW ANDREA Sodium Chloride (Normal Saline 0.9%) 1,000 mls @ 1,000 mls/hr IV BOLUS ONE Stop: 06/19/24 11:01 Last Infusion: 06/19/24 12:34 Dose: Infused Documented By: Admin: 06/19/24 10:27 Dose: 1,000 mls/hr Documented By: ADAM Ondansetron HCl (Ondansetron 4 Mg/2 Ml Inj) 4 mg IV NOW ONE Stop: 06/19/24 11:26 Last Admin: 06/19/24 12:34 Dose: Not Given Documented By: SONIA Vital Signs Vital signs: Vital Signs - 8 hr 06/19/24 10:17 Temperature 99.7 F H Pulse Rate 91 H Respiratory Rate 16 Blood Pressure 131/80 Pulse Oximetry 97 Oxygen Delivery Method Room Air Medical Decision Making Lab Data Lab results reviewed: Yes I reviewed the patient's lab results. Lab results narrative: WBC, Hb, lytes, renal fxn normal 06/19/24 10:12 06/19/24 10:12 Labs: Lab Results 06/19/24 Range/Units 10:12 WBC 7.0 (4.5-11.0) X10^3/uL RBC 4.61 (4.0-5.2) X10^6/uL Hgb 13.0 (12.0-16.0) g/dL Hct 37.1 (36-46) % MCV 80.5 (80-100) fL MCH 28.1 (26-34) PG MCHC 34.9 (30-36) % RDW 13.5 (11.6-14.8) % Plt Count 244 (150-400) X10^3/uL Neut % (Auto) 80.6 H (50-75) % Lymph % (Auto) 14.9 L (25-40) % [place] % (Auto) 4.2 (3-14) % Eos % (Auto) 0.1 L (2-4) % Baso % (Auto) 0.2 (0-2) % Neut # (Auto) 5700 (6954-8469) /uL Lymph # (Auto) 1000 L (6018-5575) /uL [place] # (Auto) 300 (0-900) /uL Eos # (Auto) 0 (0-450) /uL Baso # (Auto) 0 (0-100) /uL Sodium 135 L (137-145) mmol/L Potassium 4.2 (3.4-5.1) mmol/L Chloride 103 (98-107) mmol/L Carbon Dioxide 21 L (22-32) mmol/L BUN 6 L (7-17) mg/dL Creatinine 0.56 (0.52-1.04) mg/dL Estimated GFR > 60 (>60) mL/min BUN/Creatinine Ratio 10.7 (6-22) Glucose 91 (70-100) mg/dL Calcium 11.0 H (8.4-10.2) mg/dL Total Bilirubin 1.3 (0.2-1.3) mg/dL AST 40 H (14-36) IU/L ALT 28 (<35) IU/L Alkaline Phosphatase 78 (38-126) U/L Total Protein 7.2 (6.3-8.2) g/dL Albumin 4.0 (3.5-5.0) g/dL Globulin 3.2 (1.7-4.1) g/dL Albumin/Globulin Ratio 1.3 (1.0-2.8) MDM Narrative Medical decision making narrative: 23-year-old female current at 18 weeks gestation without significant nausea and vomiting until yesterday, having nausea vomiting and diarrhea, afebrile, sirs screen negative. Stool studies and labs requested. IV fluid bolus. IV Zofran. Symptoms suspicious for gastroenteritis acute infection. No preceding hyperemesis reported. heart tones present. No vaginal bleeding symptoms. Stool studies ordered, no specimen ever received. Patient felt better, wanted to go home. DC home per patient request. Return precautions discussed. FU as planned with next care visit. Discharge Plan Departure Patient Disposition: Home Clinical Impression: Nausea vomiting and diarrhea, , Gastroenteritis Instructions: DI for Viral Gastroenteritis -- Adult Activity Restrictions/Additional Instructions: Current reportedly at 18 weeks' gestation, recent nausea and vomiting also with diarrhea. Screening labs showed good electrolytes, normal renal function. IV ondansetron given for nausea control, IV fluid bolus given for possible dehydration. You felt better and wanted to go home. You did not want any further workup for now. Ondansetron old dissolvable tablet formulation to control nausea prescription was sent to your pharmacy to use if needed. Plenty of fluids, consider Powerade and/or Gatorade. Follow up with your provider as planned. Return to your regular provider if not improving in your gastrointestinal acute symptoms in the next couple of days. Return to this/nearest emergency department if any change worsening symptoms or any concerns prior. Prescriptions: New ondansetron 4 mg tablet,disintegrating 4 mg PO Q6H PRN (Reason: nausea and vomiting) Qty: 7 0RF No Action ondansetron 4 mg tablet,disintegrating 4 mg PO Q6H PRN (Reason: nausea and vomiting) Qty: 30 0RF vit-ferrous sulfat-FA 27 mg iron- 0.8 mg tablet PO folic acid 4 mg 4 mg tablet PO DAILY lamotrigine 150 mg Tablet 150 mg PO BID Referrals: Vicenta Beverly MD [Primary Care Provider] - Stand Alone Forms: Patient Portal/API/Survey
[2024-06-19 10:06] VITALS: PULSE 93; O2SAT 97
[2024-06-19 10:07] VITALS: BP 131/80; PULSE 96; O2SAT 97
[2024-06-19 10:17] VITALS: BP 131/80; PULSE 91; RESP 16; TEMP 37.6; O2SAT 97; BMI 34.1
[2024-06-19 10:19] LABS: Add Manual Diff / Slide Review NO; Basophils Absolute Auto 0 /uL (0-100); Basophils Percent Auto 0.2 % (0-2); Eosinophils Absolute Auto 0 /uL (0-450); Eosinophils Percent Auto 0.1 % (2-4); Hematocrit 37.1 % (36-46); Lymphocytes Absolute Auto 1000 /uL (1100-4500); Lymphocytes Percent Auto 14.9 % (25-40); Mean Corpuscular HGB Conc 34.9 % (30-36); Mean Corpuscular Hemoglobin 28.1 PG (26-34); Mean Corpuscular Volume 80.5 fL (80-100); Monocytes Absolute Auto 300 /uL (0-900); Monocytes Percent Auto 4.2 % (3-14); Neutrophils Absolute Auto 5700 /uL (1500-7000); Neutrophils Percent Auto 80.6 % (50-75); Platelet Count 244 X10^3/uL (150-400); Red Blood Cell Count 4.61 X10^6/uL (4.0-5.2); Red Cell Distribution Width 13.5 % (11.6-14.8)
[2024-06-19] MEDS: SODIUM CHLORIDE 0.9% 1,000 ML 1000 ML IV (10:27)
[2024-06-19 10:29] LABS: Alanine Aminotransferase 28 IU/L (<35); Albumin Globulin Ratio 1.3 (1.0-2.8); Alkaline Phosphatase 78 U/L (38-126); Aspartate Aminotransferase 40 IU/L (14-36); BUN Creatinine Ratio 10.7 (6-22); Bilirubin Total 1.3 mg/dL (0.2-1.3); Blood Urea Nitrogen 6 mg/dL (7-17); Carbon Dioxide 21 mmol/L (22-32); Chloride 103 mmol/L (98-107); Estimated Glomerular Filt Rate > 60 mL/min (>60); Globulin 3.2 g/dL (1.7-4.1); Glucose 91 mg/dL (70-100); HEMOLYSIS 17 (0-50); Potassium 4.2 mmol/L (3.4-5.1); Sodium 135 mmol/L (137-145); Total Protein 7.2 g/dL (6.3-8.2)
[2024-06-19 10:30] VITALS: BP 127/63; PULSE 79; O2SAT 98
[2024-06-19 11:00] VITALS: BP 123/66; PULSE 78; O2SAT 96
== END 2024-06-19 12:41 | disposition home or self-care (01) ==
PROVIDERS: Emergency Provider Emergency Medicine; PCP Family Medicine
DX: O21.9 Vomiting of pregnancy, unspecified (principal); K52.9 Noninfective gastroenteritis and colitis, unspecified; Z3A.18 18 weeks gestation of pregnancy
CPT/HCPCS: 80053; 85025; 96360; 96361; 99284

== ENCOUNTER 2024-06-28 12:56 | Emergency (ER) | payer OTHER, SELFPAY ==
[2024-06-28 13:06] VITALS: BP 125/63; PULSE 83; RESP 18; TEMP 36.7; O2SAT 98; BMI 32.3
--- NOTE | 2024-06-28 15:27 | ED_ITS ---
HPI - Allergic Reaction <Barb Bruce PA-C - Last Filed: 06/28/24 19:39> General Chief complaint: Allergic Reaction Stated complaint: Severe allergic reaction. Subsided a little. Time Seen by Provider: 06/28/24 15:22 Source: family Mode of arrival: Ambulatory History of Present Illness HPI narrative: Ms. Calixto is a pleasant 23-year-old female, currently about 19 weeks 4 days, with a past medical history of seizure disorder, seasonal allergies who presents to the emergency department for bilateral eye swelling and facial swelling that occurred at work earlier today that has since resolved. Patient states she has known seasonal allergies and has been taking Zyrtec for the last 3 weeks. 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 She was unsure what was causing this allergic reaction. She took pictures and told her who came to get her from work. Her symptoms completely subsided after about 40 minutes. She feels like she still has some congestion in her sinuses but she has no more facial swelling, no oral swelling, no difficulty breathing. She did not take any medications to help with the symptoms. She is unsure of what trigger caused this, she denies touching her face with any chemicals. She does report that she had a lunch break about 1 hour prior and her car. She denies any abdominal pain, cramping, vaginal bleeding. Normal movements. She feels overall at baseline. Related Data Home Medications Medication Instructions Recorded Confirmed lamotrigine 150 mg tablet 150 mg PO BID 04/12/23 06/19/24 folic acid 4 mg PO DAILY 04/04/24 06/19/24 vitamin-ferrous sulfate tab PO 04/04/24 06/19/24 27 mg iron-folic acid 0.8 mg tablet Previous Rx's Medication Instructions Recorded ondansetron 4 mg disintegrating 4 mg PO Q6H PRN nausea and 06/03/24 tablet vomiting #30 tabs ondansetron 4 mg disintegrating 4 mg PO Q6H PRN nausea and 06/19/24 tablet vomiting #7 tabs epinephrine 0.3 mg/0.3 mL 0.3 ml IM Q5-15M PRN anaphylaxis 06/28/24 injection, auto-injector #2 ea Allergies Allergy/AdvReac Type Severity Reaction Status Date / Time No Known Drug Allergies Allergy Verified 06/19/24 10:17 Review of Systems <Barb Bruce PA-C - Last Filed: 06/28/24 19:39> Review of Systems ROS Unobtainable: All systems reviewed & are unremarkable except as noted in HPI and below Patient History <Barb Bruce PA-C - Last Filed: 06/28/24 19:39> Medical History Seizure disorder Clavicle fracture (~2003) Thumb dislocation Shoulder dislocation (~2018) Radial fracture (~2020) Menorrhagia Dysmenorrhea Reactive airway disease Surgical History No pertinent past surgical history Family History Mother Osteoarthritis Bipolar disorder Father Asthma Grandmother Smoker Cervical cancer Bladder cancer Bipolar disorder Grandfather Smoker COPD (chronic obstructive pulmonary disease) Osteoarthritis Grandmother Melanoma Major depressive disorder Grandfather History of cholecystectomy Aunt Bipolar disorder Social History marital status: number of children: 0 household members: spouse lives independently: Yes pets and animals: Yes (cats, dog) education level: high school 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) current occupational exposures/hazards: Yes special radha needs: No travel history: recent (domestic only) seatbelt use: always water heater temp set < 120 deg: Yes working smoke detector in home: Yes fire extinguisher in home: Yes carbon monox detector in home: Yes firearms in home: No do you feel safe at home: Yes Smoking Status: Former smoker second hand exposure: Yes ( smokes) alcohol intake: former (rarely when not ) substance use type: marijuana (not recently, as a teen) during the past year weight has: remained stable well-balanced diet: about half the time daily servings fruits/ve-4 caffeine: Yes (occasional AM cup coffee) Type(s) of exercise: aerobic and weight lifting frequency: 3-4 times per week Smoking Status: Former smoker tobacco type: vaping alcohol intake frequency: holidays/special occasions only Exam <Barb Bruce PA-C - Last Filed: 06/28/24 19:39> Narrative Exam Narrative: GENERAL: 23 year old patient appears stated age. Well-developed patient, in no acute distress. HEAD: Atraumatic. Normocephalic. EYES: PERRL. Extraocular motions intact. No scleral icterus. No injection or drainage. No periorbital swelling. ENT: Nose without bleeding, purulent drainage. Throat without erythema, tonsillar hypertrophy or exudate. Airway patent. No mucous membrane lesions. Normal TMs bilaterally. NECK: Trachea midline. Cervical ROM intact. No stridor. CARDIOVASCULAR: Regular rate and rhythm. RESPIRATORY: ?Nonlabored respirations. ?Speaking in clear, full sentences. ?Clear to auscultation. Breath sounds equal bilaterally. No wheezes, rales, or rhonchi. ? GASTROINTESTINAL: Gravid uterus EXTREMITIES: No edema or joint tenderness. NEURO: AOx3. ?Clear speech. ?Moves all 4 extremities appropriately. SKIN: No rash or erythema of visible areas Initial Vital Signs Initial Vital Signs: Vital Signs Temperature 98.1 F 06/28/24 13:06 Pulse Rate 83 06/28/24 13:06 Respiratory Rate 18 06/28/24 13:06 Blood Pressure 125/63 06/28/24 13:06 Pulse Oximetry 98 06/28/24 13:06 Oxygen Delivery Method Room Air 06/28/24 13:06 <Michael Rodriguez MD - Last Filed: 06/29/24 07:06> Initial Vital Signs Initial Vital Signs: Vital Signs Temperature 98.1 F 06/28/24 13:06 Pulse Rate 83 06/28/24 13:06 Respiratory Rate 18 06/28/24 13:06 Blood Pressure 125/63 06/28/24 13:06 Pulse Oximetry 98 06/28/24 13:06 Oxygen Delivery Method Room Air 06/28/24 13:06 Course <Barb Bruce PA-C - Last Filed: 06/28/24 19:39> Vital Signs Vital signs: Vital Signs - 8 hr 06/28/24 13:06 06/28/24 15:56 Temperature 98.1 F Pulse Rate 83 78 Respiratory Rate 18 16 Blood Pressure 125/63 128/63 Pulse Oximetry 98 99 Oxygen Delivery Method Room Air Room Air <Michael Rodriguez MD - Last Filed: 06/29/24 07:06> Vital Signs Vital signs: Vital Signs - 8 hr 06/28/24 13:06 06/28/24 15:56 Temperature 98.1 F Pulse Rate 83 78 Respiratory Rate 18 16 Blood Pressure 125/63 128/63 Pulse Oximetry 98 99 Oxygen Delivery Method Room Air Room Air MDM - Allergic Reaction <Barb Bruce PA-C - Last Filed: 06/28/24 19:39> Medical Records Attestation: I reviewed the patient's medical records. MDM Narrative Medical decision making narrative: 23-year-old female, currently about 19 weeks 4 days, with a past medical history of seizure disorder, seasonal allergies who presents to the emergency department for bilateral eye swelling and facial swelling that occurred at work that has since resolved. Differential diagnosis includes but is not limited to allergic reaction, contact dermatitis, seasonal allergies, sinusitis, etc. On exam patient is in no acute distress, nontoxic-appearing, all vital signs within normal limits. She had some facial swelling at work however symptoms have completely resolved without intervention. We discussed that this might have been a local allergic reaction to potential environmental trigger, recommend she takes Benadryl this happens again otherwise call 911 or come to the ED if she is serious symptoms. She was prescribed an EpiPen if ever needed for anaphylaxis. Discussed keeping track of any potential allergic triggers, continuing to take Zyrtec daily. Strict ED return precautions discussed and all questions answered. She is agreeable with the plan and stable for discharge home. Discharge Plan Departure Patient Disposition: Home Clinical Impression: Facial swelling Instructions: DI for General Allergic Reactions Activity Restrictions/Additional Instructions: Dear Ms. Calixto, Thank you for coming to the emergency department. I am sorry that you developed an allergic reaction of your face earlier at work. I am very glad that the reaction has subsided however there is no way of knowing for sure what caused the trigger. Please continue taking your daily Zyrtec, and if you develop allergy or allergic reaction type symptoms, take Benadryl. If you ever have shortness of breath difficulty breathing or swelling of the mouth, call 911 or come to the ER immediately. I have sent an EpiPen to your pharmacy if ever needed for anaphylaxis. Please follow up with your primary care doctor within the next 2-3 days for ER follow-up. (If you do not have a PCP you can call [phone]. ?to schedule an appointment with an [facility] Primary Care Provider) IF YOU DEVELOP ANY NEW OR WORSENING SYMPTOMS, RETURN TO THE ER! Please read the attached instructions, they highlight more specific treatments and interventions for you at home. Thank you for letting me participate in your care, Barb Bruce PA-C Prescriptions: New epinephrine 0.3 mg/0.3 mL auto-injector 0.3 ml IM Q5-15M PRN (Reason: anaphylaxis) Qty: 2 0RF Rx Instructions: do not exceed 3 doses per episode No Action ondansetron 4 mg tablet,disintegrating 4 mg PO Q6H PRN (Reason: nausea and vomiting) Qty: 30 0RF vit-ferrous sulfat-FA 27 mg iron- 0.8 mg tablet PO folic acid 4 mg 4 mg tablet PO DAILY lamotrigine 150 mg Tablet 150 mg PO BID ondansetron 4 mg tablet,disintegrating 4 mg PO Q6H PRN (Reason: nausea and vomiting) Qty: 7 0RF Referrals: Vicenta Beverly MD [Primary Care Provider] - Stand Alone Forms: Patient Portal/API/Survey, Work Release Note ED Sign-out <Michael Rodriguez MD - Last Filed: 06/29/24 07:06> Cosign ED Attending Cosignature Attestation: I was immediately available in the department for consultation. ?This documentation has been reviewed and I agree with assessment and plan. Supervised by Michael Rodriguez MD
[2024-06-28 15:56] VITALS: BP 128/63; PULSE 78; RESP 16; O2SAT 99
== END 2024-06-28 15:57 | disposition home or self-care (01) ==
PROVIDERS: Emergency Provider Physician Assistant; PCP Family Medicine
DX: O26.892 Other specified pregnancy related conditions, second trimester (principal); R22.0 Localized swelling, mass and lump, head; Z3A.19 19 weeks gestation of pregnancy
CPT/HCPCS: 99281

== ENCOUNTER 2024-07-15 11:19 | Outpatient (CLI) | payer OTHER, SELFPAY | END 2024-07-15 12:58 | disposition home or self-care (01) | LOC: LABOR 12:10 → OB 13:21 | PROVIDERS: PCP Family Medicine; Referring Provider Family Medicine; Visit Provider Family Medicine | DX: O26.892 Other specified pregnancy related conditions, second trimester (principal); N75.0 Cyst of Bartholin's gland; Z3A.21 21 weeks gestation of pregnancy | CPT/HCPCS: 59050; G0378; G0379 ==

== ENCOUNTER → 2024-07-29 11:33 | Outpatient (CLI) | payer OTHER, SELFPAY ==
[2024-07-31 11:12] LABS: Lamotrigine Lamictal <1.0 ug/mL (2.0-20.0)
== END ==
PROVIDERS: PCP Family Medicine; Referring Provider Family Medicine; Visit Provider Family Medicine
DX: G40.909 Epilepsy, unspecified, not intractable, without status epilepticus (principal)
CPT/HCPCS: 36415; 80175

== ENCOUNTER 2024-08-13 15:07 | Outpatient (CLI) | payer OTHER, SELFPAY ==
--- NOTE | 2024-08-13 15:23 | P.TNLD_ITS ---
Visit Information Visit Information Date of evaluation: 08/13/24 Primary OB Provider: Vicenta Beverly Comments/Additional reasons for admission: 24yo at 26w0d here due to contractions. Pt reports contractions starting around 2hrs ago. They are in her lower abdomen and very painful, radiate to her back. Last around 1 minute, occurring approximately every 10 min. No LOF, vaginal bleeding. She is feeling her baby move regularly. [facility] Medical History Seizure disorder Clavicle fracture (~2003) Thumb dislocation Shoulder dislocation (~2018) Radial fracture (~2020) Menorrhagia Dysmenorrhea Reactive airway disease Surgical History No pertinent past surgical history Family History Mother Osteoarthritis Bipolar disorder Father Asthma Grandmother Smoker Cervical cancer Bladder cancer Bipolar disorder Grandfather Smoker COPD (chronic obstructive pulmonary disease) Osteoarthritis Grandmother Melanoma Major depressive disorder Grandfather History of cholecystectomy Aunt Bipolar disorder Social History marital status: number of children: 0 household members: spouse lives independently: Yes pets and animals: Yes (cats, dog) education level: high school 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) current occupational exposures/hazards: Yes special radha needs: No travel history: recent (domestic only) seatbelt use: always water heater temp set < 120 deg: Yes working smoke detector in home: Yes fire extinguisher in home: Yes carbon monox detector in home: Yes firearms in home: No do you feel safe at home: Yes second hand exposure: Yes ( smokes) alcohol intake: former (rarely when not ) substance use type: marijuana (not recently, as a teen) during the past year weight has: remained stable well-balanced diet: about half the time daily servings fruits/ve-4 caffeine: Yes (occasional AM cup coffee) Type(s) of exercise: aerobic and weight lifting frequency: 3-4 times per week Evaluation Evaluation Baseline heart rate: 140 Variability: Moderate (11-25) monitor accelerations: Present Monitor Decelerations: Absent Category of Tracing: Reactive Comments: Irregular contractions, only 3 seen in > 30 minutes Diagnosis, Plan/Disposition Plan/Disposition Plan: 24yo at 26w0d here with contractions. Could not complete FFN due to pt having intercourse within the last 24hrs. No regular contractions seen on monitoring, very irregular and infrequent. Pt feeling better with oral hydration. U/A suggestive of UTI. Rx sent for treatment, will f/u on culture. Discussed hydration, rest for the evening. Stable for d/c home. OB Disposition: home
[2024-08-13 16:06] LABS: Appearance Urine UA CLEAR; Bilirubin Urine UA NEGATIVE (NEGATIVE); Color Urine UA YELLOW; Glucose Urine UA NEGATIVE (Negative); Ketones Urine UA NEGATIVE (NEGATIVE); Leukocyte Esterase Urine UA 2+ (NEGATIVE); Nitrite Urine UA NEGATIVE (Negative); Occult Blood Urine UA NEGATIVE (Negative); Protein Urine UA NEGATIVE (Negative); Urobilinogen Urine UA 0.2 E.U./dL (0.2)
[2024-08-13 16:12] LABS: pH Urine UA 7.5 (4.5-8.0)
[2024-08-13 16:19] LABS: Bacteria Urine Many (>30); RBC Urine None Seen (0-5/HPF); Urine Volume 10mL (spun); WBC Urine 5-10/HPF (0-5/HPF)
[2024-08-13 16:20] LABS: Calcium Oxalate Crystals Urine Occasional; Culture Indicated Urine Specimen Cultured; Squamous Epithelial Cell Urine 1-5 /HPF (0-5/HPF)
== END 2024-08-13 16:35 | disposition home or self-care (01) ==
LOC: LABOR 15:42 → OB 17:20
PROVIDERS: PCP Family Medicine; Referring Provider Family Medicine; Visit Provider Family Medicine
DX: O47.02 False labor before 37 completed weeks of gestation, second trimester (principal); Z3A.26 26 weeks gestation of pregnancy
CPT/HCPCS: 81001; 87086; G0378; G0379

== ENCOUNTER → 2024-08-26 11:32 | Outpatient (CLI) | payer OTHER, SELFPAY ==
[2024-08-26 13:05] LABS: Add Manual Diff / Slide Review NO; Basophils Absolute Auto 0 /uL (0-100); Basophils Percent Auto 0.2 % (0-2); Eosinophils Absolute Auto 200 /uL (0-450); Eosinophils Percent Auto 1.8 % (2-4); Hematocrit 32.8 % (36-46); Hemoglobin 11.4 g/dL (12.0-16.0); Lymphocytes Absolute Auto 1900 /uL (1100-4500); Lymphocytes Percent Auto 20.6 % (25-40); Mean Corpuscular HGB Conc 34.7 % (30-36); Mean Corpuscular Volume 83.8 fL (80-100); Monocytes Absolute Auto 400 /uL (0-900); Monocytes Percent Auto 3.8 % (3-14); Neutrophils Absolute Auto 6900 /uL (1500-7000); Neutrophils Percent Auto 73.6 % (50-75); Platelet Count 277 X10^3/uL (150-400); Red Blood Cell Count 3.92 X10^6/uL (4.0-5.2); Red Cell Distribution Width 13.9 % (11.6-14.8); White Blood Cell Count 9.4 X10^3/uL (4.5-11.0)
[2024-08-26 13:42] LABS: GTT (PREG) 1 Hour PP 50gm Dose 125 mg/dL (76-139)
== END ==
PROVIDERS: PCP Family Medicine; Referring Provider Family Medicine; Visit Provider Family Medicine
DX: Z34.00 Encounter for supervision of normal first pregnancy, unspecified trimester (principal); G40.909 Epilepsy, unspecified, not intractable, without status epilepticus
CPT/HCPCS: 80175; 82950; 85025; 86850

== ENCOUNTER → 2024-09-24 09:25 | Outpatient (CLI) | payer OTHER, SELFPAY | PROVIDERS: PCP Family Medicine; Referring Provider Family Medicine; Visit Provider Family Medicine | DX: Z34.00 Encounter for supervision of normal first pregnancy, unspecified trimester (principal); G40.909 Epilepsy, unspecified, not intractable, without status epilepticus | CPT/HCPCS: 36415; 80175 ==

== ENCOUNTER → 2024-10-01 08:40 | Outpatient (CLI) | payer OTHER, SELFPAY | PROVIDERS: PCP Family Medicine; Referring Provider Family Medicine; Visit Provider Family Medicine | DX: Z34.00 Encounter for supervision of normal first pregnancy, unspecified trimester (principal); G40.909 Epilepsy, unspecified, not intractable, without status epilepticus | CPT/HCPCS: 36415; 80175 ==

== ENCOUNTER 2024-10-08 11:18 | Outpatient (CLI) | payer OTHER, SELFPAY ==
[2024-10-08 12:00] LABS: Appearance Urine UA CLEAR; Bilirubin Urine UA NEGATIVE (NEGATIVE); Color Urine UA YELLOW; Glucose Urine UA NEGATIVE (Negative); Ketones Urine UA NEGATIVE (NEGATIVE); Leukocyte Esterase Urine UA 2+ (NEGATIVE); Nitrite Urine UA NEGATIVE (Negative); Occult Blood Urine UA NEGATIVE (Negative); Protein Urine UA NEGATIVE (Negative); Specific Gravity Urine UA 1.010 (1.000-1.035); Urobilinogen Urine UA 0.2 E.U./dL (0.2)
[2024-10-08 12:04] LABS: pH Urine UA 7.0 (4.5-8.0)
[2024-10-08 12:30] LABS: Culture Indicated Urine Specimen Cultured
--- NOTE | 2024-10-08 13:12 | P.TNLD_ITS ---
Visit Information Visit Information Date of evaluation: 10/08/24 Primary OB Provider: Vicenta Beverly Comments/Additional reasons for admission: 24yo at 34w0d here for RUQ abdominal pain. Pt reports pain started around 7pm last night, sharp in nature. Does have associated mild nausea. No headache, vision changes, swelling. [facility] Medical History Seizure disorder Clavicle fracture (~2003) Thumb dislocation Shoulder dislocation (~2018) Radial fracture (~2020) Menorrhagia Dysmenorrhea Reactive airway disease Surgical History No pertinent past surgical history Family History Mother Osteoarthritis Bipolar disorder Father Asthma Grandmother Smoker Cervical cancer Bladder cancer Bipolar disorder Grandfather Smoker COPD (chronic obstructive pulmonary disease) Osteoarthritis Grandmother Melanoma Major depressive disorder Grandfather History of cholecystectomy Aunt Bipolar disorder Social History marital status: number of children: 0 household members: spouse lives independently: Yes pets and animals: Yes (cats, dog) education level: high school 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) current occupational exposures/hazards: Yes special radha needs: No travel history: recent (domestic only) seatbelt use: always water heater temp set < 120 deg: Yes working smoke detector in home: Yes fire extinguisher in home: Yes carbon monox detector in home: Yes firearms in home: No do you feel safe at home: Yes second hand exposure: Yes ( smokes) alcohol intake: former (rarely when not ) substance use type: marijuana (not recently, as a teen) during the past year weight has: remained stable well-balanced diet: about half the time daily servings fruits/ve-4 caffeine: Yes (occasional AM cup coffee) Type(s) of exercise: aerobic and weight lifting frequency: 3-4 times per week Exam Narrative Exam Narrative: Gen: NAD, sitting comfortably in bed Abd: soft, mild RUQ tenderness w/o rebound, guarding, rigidity, nondistended, gravid Ext: no edema Objective Labs Labs: Laboratory Results - last 24 hr 10/08/24 11:38 Urine Color Yellow Urine Appearance Clear Urine pH 7.0 Ur Specific [place] 1.010 Urine Protein Negative Urine Glucose (UA) Negative Urine Ketones Negative Urine Occult Blood Negative Urine Nitrate Negative Urine Bilirubin Negative Urine Urobilinogen 0.2 Ur Leukocyte Esterase 2+ H Urine RBC None seen Urine WBC 1-5/hpf Ur Squamous Epith Cells 5-10 /hpf H Urine Bacteria Moderate (10-30) H Ur Culture Indicated? Specimen cultured Vol Urine Centrifuged 10ml (spun) Evaluation Evaluation Baseline heart rate: 140 Variability: Moderate (6-25) monitor accelerations: Present Monitor Decelerations: Absent Category of Tracing: Reactive Diagnosis, Plan/Disposition Final Diagnosis (1) RUQ abdominal pain: Status: Acute (2) 34 weeks gestation of : Status: Acute Plan/Disposition Plan: 24yo at 34w0d here for RUQ abdominal pain. FHT reassuring, no contractions. BP in good range, no other symptoms of pre-eclampsia. Low concern for cholecystitis. Most likely due to positioning and kicking. Discussed position changes at home, return precautions. OB Disposition: home
== END 2024-10-08 13:13 | disposition home or self-care (01) ==
LOC: LABOR 11:51 → OB 10-09 06:33
PROVIDERS: PCP Family Medicine; Referring Provider Family Medicine; Visit Provider Family Medicine
DX: O26.893 Other specified pregnancy related conditions, third trimester (principal); R10.11 Right upper quadrant pain; Z3A.34 34 weeks gestation of pregnancy
CPT/HCPCS: 81001; 87086; G0378; G0379

== ENCOUNTER 2024-10-17 13:28 | Outpatient (CLI) | payer OTHER, SELFPAY | END 2024-10-17 14:30 | disposition home or self-care (01) | LOC: LABOR 14:14 → OB 10-18 08:14 | PROVIDERS: PCP Family Medicine; Referring Provider Family Medicine; Visit Provider Family Medicine | DX: O42.913 Preterm premature rupture of membranes, unspecified as to length of time between rupture and onset of labor, third trimester (principal); Z3A.35 35 weeks gestation of pregnancy | CPT/HCPCS: 59025; 84112; G0378; G0379 ==

== ENCOUNTER → 2024-10-21 11:44 | Outpatient (CLI) | payer OTHER, SELFPAY ==
[2024-10-22 11:50] LABS: Strep Grp B PCR NEG for Grp B Strep
== END ==
PROVIDERS: PCP Family Medicine; Visit Provider Family Medicine
DX: Z34.00 Encounter for supervision of normal first pregnancy, unspecified trimester (principal)
CPT/HCPCS: 87653